=== PATIENT | female | born 1945 | race Caucasian/White ===

== ENCOUNTER 2017-07-17 23:55 | Emergency (ER) | payer OTHER ==
[2017-07-18] MEDS ORDERED: HYDROCODONE/APAP 5/325 MG TAB ONE (00:28)
[2017-07-18 00:53] LABS: Absolute Lymphocytes (CBC) 1.1 K/uL (0.7-4.9); Absolute Monocytes 0.3 K/uL (0.1-1.3); Absolute Neutrophil 3.2 K/uL (1.8-8.0); Basophils % 0.5 % (0-1.3); Eosinophils % 1.1 % (0-4.4); Hematocrit 35.2 % (36.0-45.0); Lymphocytes % 22.9 % (15.3-44.8); MCH 29.2 pg (27.0-35.0); MPV 9.9 fL (7.6-11.3); Monocytes % 7.4 % (3.3-12.3); RBC Red Blood Cell Count 3.95 M/uL (3.86-4.86)
[2017-07-18 01:06] LABS: Potassium 3.2 mEq/L (3.6-5.0)
[2017-07-18] MEDS ORDERED: NA CHLORIDE 0.9% 500 ML ONE (01:29)
[2017-07-18] MEDS ORDERED: AZITHROMYCIN 250 MG TAB ONE (02:59)
[2017-07-18] MEDS ORDERED: cloNIDine HCl 0.1 MG TAB ONE (02:59)
--- NOTE | 2017-07-18 03:21 | EDPHYS ---
Physician Documentation [facility] Name: Sonya Viveros Age: 72 yrs Sex: Female : 1945 Arrival Date: 07/17/2017 Time: 23:56 Bed 7 Private MD: ED Physician Nimesh Hahn HPI: 07/18 00:42 This 72 yrs old Female presents to ER via Ambulatory with complaints of Chest rn Pain, Back Pain. 00:42 The patient presents with pain that is chronic. The symptoms are located in the low rn back. Onset: The symptoms/episode began/occurred 2 week(s) ago. The pain radiates to the chest. Modifying factors: The patient symptoms are alleviated by nothing, the patient symptoms are aggravated by movement. Severity of symptoms: At their worst the symptoms were moderate, in the emergency department the symptoms have improved. The patient has experienced similar episodes in the past. Reports intermittent back and chest pain, seen by her PCP, told to f/u with cardiology as outpt for w/u, pt went out of town so did not, no trauma, reports more back pain over last few days, low back, hurts to move, no fever. Drove herself here. No abd pain/vomiting/diarrhea.. Historical: - Allergies: 00:10 Levofloxacin; bb 00:10 NSAIDS (Non-Steroidal Anti-Inflamma; bb - Home Meds: 00:10 Unable to obtain [Active]; bb - PMHx: 00:10 Hernia; Hypertension; bb - PSHx: 00:10 Hernia repair; leg surgery; bb - Immunization history:: Adult Immunizations up to date. - Social history:: Smoking status: Patient/guardian denies using tobacco. - Family history:: not pertinent. - Hospitalizations: : No recent hospitalization is reported. ROS: 00:42 Constitutional: Negative for fever, chills, and weight loss, Eyes: Negative for injury, rn pain, redness, and discharge, Neck: Negative for injury, pain, and swelling, Cardiovascular: Negative for palpitations, and edema, Respiratory: Negative for shortness of breath, cough, wheezing, and pleuritic chest pain, Abdomen/GI: Negative for abdominal pain, nausea, vomiting, diarrhea, and constipation, Back: Negative for injury MS/Extremity: Negative for injury and deformity, Skin: Negative for injury, rash, and discoloration, Neuro: Negative for headache, weakness, numbness, tingling, and seizure. Exam: 00:42 Constitutional: This is a well developed, well nourished patient who is awake, alert, rn appears anxious and flustered Head/Face: Normocephalic, atraumatic. Eyes: Pupils equal round and reactive to light, extra-ocular motions intact. Lids and lashes normal. Conjunctiva and sclera are non-icteric and not injected. Cornea within normal limits. Periorbital areas with no swelling, redness, or edema. Neck: Trachea midline, no thyromegaly or masses palpated, and no cervical lymphadenopathy. Supple, full range of motion without nuchal rigidity, or vertebral point tenderness. No Meningismus. Cardiovascular: Regular rate and rhythm with a normal S1 and S2. No gallops, murmurs, or rubs. Normal PMI, no JVD. No pulse deficits. Respiratory: Lungs have equal breath sounds bilaterally, clear to auscultation and percussion. No rales, rhonchi or wheezes noted. No increased work of breathing, no retractions or nasal flaring. Abdomen/GI: Soft, non-tender, with normal bowel sounds. No distension or tympany. No guarding or rebound. No evidence of tenderness throughout. Back: No spinal tenderness. No costovertebral tenderness. MS/ Extremity: Pulses equal, no cyanosis. Neurovascular intact. Full, normal range of motion. Equal circumference. Neuro: Awake and alert, GCS 15, oriented to person, place, time, and situation. Cranial nerves II-XII grossly intact. Motor strength 5/5 in all extremities. Sensory grossly intact. Cerebellar exam normal. Vital Signs: 00:10 BP 182 / 109; Pulse 92; Resp 16 S; Temp 97.6(O); Pulse Ox 100% on R/A; Weight 81.65 kg bb (R); Height 5 ft. 7 in. (170.18 cm) (R); Pain 8/10; 01:12 BP 161 / 105; Pulse 84; Resp 16; Pulse Ox 99% on R/A; aa1 02:21 BP 171 / 113; Pulse 82; Resp 18; Pulse Ox 100% on R/A; mg2 03:27 BP 169 / 100; Pulse 79; Resp 18; Pulse Ox 100% on R/A; aa1 00:10 Body Mass Index 28.19 (81.65 kg, 170.18 cm) bb MDM: 00:08 Patient medically screened. rn 03:20 Differential diagnosis: arthritis, chronic back pain, spinal injury, sprain, rn Ureterolithiasis vertebral fracture. Data reviewed: vital signs, nurses notes, lab test result(s), radiologic studies, CT scan, and as a result, I will discharge patient. Counseling: I had a detailed discussion with the patient and/or guardian regarding: the historical points, exam findings, and any diagnostic results supporting the discharge/admit diagnosis, lab results, radiology results, the need for outpatient follow up, to return to the emergency department if symptoms worsen or persist or if there are any questions or concerns that arise at home. Response to treatment: the patient's symptoms have mildly improved after treatment, and as a result, I will discharge patient. Special discussion: I discussed with the patient/guardian in detail that at this point there is no indication for admission to the hospital. It is understood, however, that if the symptoms persist or worsen the patient needs to return immediately for re-evaluation. 07/18 00:24 Order name: CBC with Diff; Complete Time: 01:28 rn 07/18 00:24 Order name: Basic Metabolic Panel; Complete Time: 01:28 rn 07/18 00:24 Order name: Urine Microscopic Only rn 07/18 00:24 Order name: Troponin (emerg Dept Use Only); Complete Time: 01:39 rn 07/18 00:41 Order name: CT Aorta for Dissection 07/18 02:03 Order name: Urine Dipstick--Ancillary (enter results) 07/18 00:24 Order name: IV Start; Complete Time: 00:38 rn 07/18 00:24 Order name: Urine Dipstick-Ancillary (obtain specimen); Complete Time: 02:01 rn 07/18 00:24 Order name: EKG; Complete Time: 00:25 rn 07/18 00:24 Order name: EKG - Nurse/Tech; Complete Time: 00:25 rn Administered Medications: 00:43 Drug: [place] 5 mg-325 mg 1 tabs Route: PO; mg2 03:30 Follow up: Response: No adverse reaction; Pain is decreased aa1 01:32 Drug: NS 0.9% 500 ml Route: IV; Rate: bolus; Site: right hand; mg2 03:29 Follow up: IV Status: Completed infusion aa1 03:04 Drug: cloNIDine 0.2 mg Route: PO; mg2 03:29 Follow up: Response: No adverse reaction; Blood pressure is elevated aa1 03:04 Drug: Zithromax 500 mg Route: PO; mg2 03:29 Follow up: Response: No adverse reaction aa1 Disposition: 07/18/17 03:21 Discharged to Home. Impression: Low back pain, Chest pain, unspecified. - Condition is Stable. - Discharge Instructions: Back Pain, Adult, Nonspecific Chest Pain, Pleurisy. - Prescriptions for Ultram 50 mg Oral Tablet - take 1 tablet by ORAL route every 6 hours As needed; 20 tablet. Zithromax Z- Stanislaw 250 mg Oral Tablet - take 1 tablet by ORAL route as directed for 5 days Day 1 - take two (2) tablets one time. Day 2, 3, 4 , 5 take one (1) tablet once daily.; 6 tablet. - Medication Reconciliation Form, Thank You Letter, Antibiotic Education, Prescription Opioid Use form. - Follow up: Private Physician; When: As needed; Reason: Recheck today's complaints, Re-evaluation by your physician. - Problem is new. - Symptoms have improved. Signatures: Dispatcher [employer] Valeria Esquivel RN RN aa1 Amy Lynch RN RN bb Nimesh Hahn MD MD rn Gardose, Michele, RN RN mg2
--- NOTE | 2017-07-18 03:21 | ER ---
Nurse's Notes [facility] Name: Sonya Viveros Age: 72 yrs Sex: Female : 1945 Arrival Date: 07/17/2017 Time: 23:56 Bed 7 Private MD: Diagnosis: Low back pain;Chest pain, unspecified Presentation: 07/18 00:07 Presenting complaint: Patient states: she is having back pain radiating through her bb chest and she fell against the car x 2 while she was trying to get here tonight, also c/o SOB and nausea. Transition of care: patient was not received from another setting of care. Onset of symptoms is unknown. Initial Sepsis Screen: Does the patient meet any 2 criteria? No. Patient's initial sepsis screen is negative. Does the patient have a suspected source of infection? No. Patient's initial sepsis screen is negative. Care prior to arrival: None. 00:07 Method Of Arrival: Ambulatory bb 00:07 Acuity: RONALDO 2 bb Historical: - Allergies: 00:10 Levofloxacin; bb 00:10 NSAIDS (Non-Steroidal Anti-Inflamma; bb - Home Meds: 00:10 Unable to obtain [Active]; bb - PMHx: 00:10 Hernia; Hypertension; bb - PSHx: 00:10 Hernia repair; leg surgery; bb - Immunization history:: Adult Immunizations up to date. - Social history:: Smoking status: Patient/guardian denies using tobacco. - Family history:: not pertinent. - Hospitalizations: : No recent hospitalization is reported. Screenin:48 Abuse screen: Denies threats or abuse. Denies injuries from another. Nutritional mg2 screening: No deficits noted. Tuberculosis screening: No symptoms or risk factors identified. Fall Risk IV access (20 points). Assessment: 00:45 General: Appears in no apparent distress. Behavior is anxious. Pain: Pain radiates to mg2 shoulder Pain began gradually. Neuro: Level of Consciousness is awake, alert, obeys commands, Oriented to person, place, time, situation. Cardiovascular: Patient's skin is warm and dry. Chest pain is described as Pain is 5 out of 10 on a pain scale. quality is aching is located in posterior began 1 day ago episodes are intermittent. Respiratory: Airway is patent Respiratory effort is even, unlabored, Respiratory pattern is regular. GI: No signs and/or symptoms were reported involving the gastrointestinal system. : No signs and/or symptoms were reported regarding the genitourinary system. EENT: No signs and/or symptoms were reported regarding the EENT system. Derm: No signs and/or symptoms reported regarding the dermatologic system. 01:05 Reassessment: Patient appears in no apparent distress at this time. Patient and/or aa1 family updated on plan of care and expected duration. Pain level reassessed. Patient is alert, oriented x 3, equal unlabored respirations, skin warm/dry/pink. Pt reports [place] has not helped her pain. States, "I don't take hydrocodone because it doesn't work for me. Dr. Collado gives me Tylenol #[address] Graham gives me morphine." notified. 02:25 Reassessment: Patient appears in no apparent distress at this time. Patient and/or mg2 family updated on plan of care and expected duration. Pain level reassessed. Patient is alert, oriented x 3, equal unlabored respirations, skin warm/dry/pink. patient is back from ct. 03:27 Reassessment: Patient appears in no apparent distress at this time. Patient is alert, aa1 oriented x 3, equal unlabored respirations, skin warm/dry/pink. Discussed d/c \\T\\ f/u instructions with pt; denies questions or concerns at this time Patient states feeling better. Vital Signs: 00:10 BP 182 / 109; Pulse 92; Resp 16 S; Temp 97.6(O); Pulse Ox 100% on R/A; Weight 81.65 kg bb (R); Height 5 ft. 7 in. (170.18 cm) (R); Pain 8/10; 01:12 BP 161 / 105; Pulse 84; Resp 16; Pulse Ox 99% on R/A; aa1 02:21 BP 171 / 113; Pulse 82; Resp 18; Pulse Ox 100% on R/A; mg2 03:27 BP 169 / 100; Pulse 79; Resp 18; Pulse Ox 100% on R/A; aa1 00:10 Body Mass Index 28.19 (81.65 kg, 170.18 cm) bb ED Course: 07/17 23:56 Patient arrived in ED. ds1 07/18 00:08 Nimesh Hahn MD is Attending Physician. rn 00:09 Triage completed. bb 00:10 Arm band placed on Patient placed in an exam room, on a stretcher, on potline monitor, bb on pulse oximetry. 00:42 Cooper Rankin, RN is Primary Nurse. mg2 00:44 Inserted saline lock: 22 gauge in right hand, using aseptic technique. mg2 00:47 Radiology exam delayed due to lab results not completed at this time. (BUN/Creatinine). cw1 00:50 Patient has correct armband on for positive identification. Placed in gown. Bed in low mg2 position. Side rails up X2. classroom monitor on. Pulse ox on. NIBP on. Noise minimized. Warm blanket given. 01:08 Radiology exam delayed due to IV insertion attempt and/or patient not having cw1 appropriate IV at this time. 01:32 Inserted saline lock: 22 gauge in left antecubital area, using aseptic technique. aa1 01:40 Straight cath inserted, using sterile technique, 16 Fr. Specimen obtained. Patient bb tolerated well. 02:17 CT Aorta for Dissection In Process Unspecified. EDMS 02:20 Patient moved back from CT. mg2 03:27 No provider procedures requiring assistance completed. IV discontinued, intact, aa1 bleeding controlled, No redness/swelling at site. Pressure dressing applied. Administered Medications: 00:43 Drug: [place] 5 mg-325 mg 1 tabs Route: PO; mg2 03:30 Follow up: Response: No adverse reaction; Pain is decreased aa1 01:32 Drug: NS 0.9% 500 ml Route: IV; Rate: bolus; Site: right hand; mg2 03:29 Follow up: IV Status: Completed infusion aa1 03:04 Drug: cloNIDine 0.2 mg Route: PO; mg2 03:29 Follow up: Response: No adverse reaction; Blood pressure is elevated aa1 03:04 Drug: Zithromax 500 mg Route: PO; mg2 03:29 Follow up: Response: No adverse reaction aa1 Outcome: 03:21 Discharge ordered by . rn 03:29 Discharged to home ambulatory. aa1 03:29 Condition: good 03:29 Discharge instructions given to patient, Instructed on discharge instructions, follow up and referral plans. medication usage, Demonstrated understanding of instructions, follow-up care, medications, Prescriptions given X 2. 03:30 Patient left the ED. aa1 Signatures: Dispatcher [facility] EDND Valeria Landers RN RN aa1 Terri John ds1 Amy Lynch, RN RN bb Nimesh Hahn MD MD rn Woodley, Crystal cw1 Cooper Rankin, SISI RN mg2
[2017-07-18 03:28] LABS: Urine Blood NEGATIVE (NEG); Urine Glucose NEGATIVE (NEG); Urine Protein NEGATIVE (NEG); Urine Specific Gravity 1.015 (1.005-1.030)
[2017-07-18 03:31] LABS: Urine Bacteria <20 /HPF (<20); Urine Culture Reflex Order NOT NEEDED; Urine RBC <5 /HPF (NONE SEEN)
[2017-07-18 03:34] VITALS: TEMP 97.6
[2017-07-18 03:36] VITALS: O2SAT 100
[2017-07-18 03:37] VITALS: BP 169/100
--- NOTE | 2017-07-18 07:15 | EKG ---
Test Date: 2017-07-18 Test Time: 00:09:50 Industrial Maintenance Electrician: ARIAN MEASUREMENT RESULTS: Intervals: Rate: 87 MO: 154 QRSD: 78 QT: 370 QTc: 445 Crane: P: 35 MO: 154 QRS: 11 T: 45 INTERPRETIVE STATEMENTS: Normal sinus rhythm Nonspecific ST abnormality Abnormal ECG Compared to ECG 05/04/2017 12:30:42 ST (T wave) deviation now present Electronically Signed On 07-18-17 07:14:33 CDT by Ismael Singer
--- NOTE | 2017-07-18 08:58 | RAD REPORT ---
EXAM DESCRIPTION: CT - Angio Aorta For Dissection - 07/18/2017 7:02 am CLINICAL HISTORY: Back pain radiating throughout the chest multiple falls triggered by the severity of pain A preliminary written report was provided at the time of the study, and the report was reviewed prio r to final dictation. COMPARISON: Lumbar spine March 2017 TECHNIQUE: Dynamically enhanced 3 mm thick images of the chest, abdomen, and upper pelvis were obtai kevan during administration of approximately 150mL Isovue 370 IV contrast. Sagittal and coronal reconst ruction images were generated and reviewed. Exam utilizes a protocol to evaluate entire course of the aorta. All CT scans are performed using dose optimization technique as appropriate and may include automated exposure control or mA/KV adjustment according to patient size. FINDINGS: Aorta is normal in diameter with no dissection or other acute aortic findings. Mild aortic atherosclerotic calcifications are present without displacement. Reconstruction images show no signi ficant findings. Pulmonary arteries are normal as well. No cardiomegaly, pericardial thickening or pericardial effusio n. No consolidation or mass in the lung parenchyma. Minimal ground-glass opacities are present in the po sterior right lung field. A few sparse airspace opacities are present in the medial right base. These are most likely areas of atelectasis. A minimal amount of alveolitis or bronchiolitis would be possi ble. No pleural thickening, pleural effusion or pneumothorax. No abnormal mediastinal or hilar mass or lymphadenopathy seen. No chest wall mass or abnormal axillar y lymphadenopathy. Celiac, SMA and renal arteries show no suspicious findings. Solid abdominal viscera and bowel show no acute findings. Diffuse fatty infiltration of the liver is noted. Cholecystectomy clips are present with no biliary tree dilatation. No mass or abnormal lymphadenopathy. No free air, free fluid or inf lammatory stranding. No urinary bladder abnormality. Small hiatal hernia is present. Disc and bony degenerative changes are present. The 40% compression fracture of L1 is stable from Mar. IMPRESSION: Negative CT scan of the aorta. Right lung field atelectasis changes are evident. This etiology is favored over alveolitis or bronchi olitis. Diffuse fatty infiltration of the liver. A small hiatal hernia is present. The L1 compression fracture is stable from March 2017. The March lumbar spine report was not avai lable at the time of the preliminary report. .
== END 2017-07-18 03:30 | disposition home or self-care (01) ==
LOC: ER 23:55
DX: R07.9 Chest pain, unspecified (principal); I10 Essential (primary) hypertension; Z88.1 Allergy status to other antibiotic agents; Z88.6 Allergy status to analgesic agent
CPT/HCPCS: 36415; 51702; 71275; 74175; 80048; 84484; 85025; 93005; 96360; 96361; 99285; Q9967; 81003; 81015

== ENCOUNTER 2018-05-04 14:56 | Emergency (ER) | payer OTHER ==
[2011-12-11 12:02] VITALS: BP 84/54
[2018-05-04] MEDS ORDERED: MORPHINE 4 MG/ML SYR ONE (15:43)
[2018-05-04] MEDS ORDERED: ONDANSETRON 4 MG/2 ML VIAL ONE (15:43)
[2018-05-04 15:58] LABS: Absolute Lymphocytes (CBC) 0.8 K/uL (0.7-4.9); Absolute Monocytes 0.3 K/uL (0.1-1.3); Absolute Neutrophil 2.8 K/uL (1.8-8.0); Basophils % 0.6 % (0-1.3); Eosinophils % 1.7 % (0-4.4); Hematocrit 33.4 % (36.0-45.0); Lymphocytes % 19.5 % (15.3-44.8); MPV 10.5 fL (7.6-11.3); Protime INR 1.04; RBC Red Blood Cell Count 3.57 M/uL (3.86-4.86)
[2018-05-04 16:19] LABS: ALT/SGPT 47 U/L (12-78); AST/SGOT 41 U/L (15-37); Albumin 3.5 g/dL (3.4-5.0); Alkaline Phosphatase 96 U/L (45-117); BUN Blood Urea Nitrogen 12 mg/dL (7-18); Bicarbonate 27 mmol/L (21-32); Bilirubin Direct 0.2 mg/dL (0-0.2); Bilirubin Total 0.6 mg/dL (0.2-1.0); Glucose Level 89 mg/dL (74-106); Magnesium 1.9 mg/dL (1.8-2.4); NT PRO-BNP 316 pg/mL (<125); Potassium 3.6 mmol/L (3.5-5.1); Sodium Level 141 mmol/L (136-145); Troponin (Emerg Dept Use Only) < 0.02 ng/mL (0.0-0.045)
--- NOTE | 2018-05-04 16:21 | RAD REPORT ---
EXAM DESCRIPTION: CT - Head Brain Wo Cont - 05/04/2018 3:49 pm CLINICAL HISTORY: Dizziness COMPARISON: March 2017 TECHNIQUE: Computed axial tomography of the head was obtained. IV contrast was not requested. All CT scans are performed using dose optimization technique as appropriate and may include automated exposure control or mA/KV adjustment according to patient size. FINDINGS: An intracranial bleed is not seen . The ventricles are normal in caliber. No extra-axial fluid collection is noted. Fluid is present within the sphenoid sinus. IMPRESSION: No acute intracranial abnormality is seen. If patient's symptoms persist MRI of the bra in would be recommended. Fluid within the sphenoid sinus may indicate acute sinusitis
--- NOTE | 2018-05-04 16:55 | EKG ---
Test Date: 2018-05-04 Test Time: 15:06:19 Ice Plant Operator: JACOB MEASUREMENT RESULTS: Intervals: Rate: 64 PA: 146 QRSD: 86 QT: 392 QTc: 404 [place]: P: 24 PA: 146 QRS: 1 T: 28 INTERPRETIVE STATEMENTS: Normal sinus rhythm Moderate voltage criteria for LVH, may be normal variant Borderline ECG Compared to ECG 07/18/2017 00:09:50 Left ventricular hypertrophy now present ST (T wave) deviation no longer present Electronically Signed On 05-04-18 16:54:39 [employer] by Ismael Singer
[2018-05-04] MEDS ORDERED: DIAZEPAM 2 MG TABLET ONE (17:15)
--- NOTE | 2018-05-04 17:37 | RAD REPORT ---
EXAM DESCRIPTION: Nasir Single View05/04/2018 3:59 pm CLINICAL HISTORY: Chest pain COMPARISON: 2012 FINDINGS: The lungs appear clear of acute infiltrate. The heart is normal size IMPRESSION: No acute abnormalities displayed
--- NOTE | 2018-05-04 17:48 | ER ---
Nurse's Notes [facility] Name: Sonya Viveros Age: 73 yrs Sex: Female : 1945 Arrival Date: 05/04/2018 Time: 15:02 Bed 3 Private MD: Diagnosis: Low back pain;Acute stress reaction;Essential (primary) hypertension;Acute sinusitis;Urinary tract infection, site not specified Presentation: 05/04 15:17 Presenting complaint: EMS states: Was at Dr Langston's office for a routine visit, BP was ph elevated at 200/100, pt c/o, dizziness, blurred vision, and chronic back pain. Transition of care: patient was not received from another setting of care. Onset of symptoms was May 04, 2018. Risk Assessment: Do you want to hurt yourself or someone else? Patient reports no desire to harm self or others. Initial Sepsis Screen: Does the patient meet any 2 criteria? No. Patient's initial sepsis screen is negative. Does the patient have a suspected source of infection? No. Patient's initial sepsis screen is negative. Care prior to arrival: None. 15:17 Method Of Arrival: EMS: [facility] ph 15:17 Acuity: RONALDO 3 ph Historical: - Allergies: 15:24 Levofloxacin; ph 15:24 NSAIDS (Non-Steroidal Anti-Inflamma; ph - PMHx: 15:24 Hernia; Hypertension; Anxiety; ph - PSHx: 15:24 Hernia repair; leg surgery; ph - Immunization history:: Adult Immunizations unknown. - Social history:: Smoking status: Patient/guardian denies using tobacco. - Ebola Screening: : No symptoms or risks identified at this time. Screenin:50 Abuse screen: Denies threats or abuse. Denies injuries from another. Nutritional ph screening: No deficits noted. Tuberculosis screening: No symptoms or risk factors identified. Fall Risk None identified. Assessment: 15:25 General: Appears in no apparent distress. uncomfortable, slender, well groomed, ph Behavior is cooperative, appropriate for age, anxious. Pain: Complains of pain in low back area Pain radiates to right leg. Neuro: Level of Consciousness is awake, alert, obeys commands, Oriented to person, place, time, situation, Reports blurred vision dizziness. Cardiovascular: Reports chest pain, lightheadedness, Capillary refill < 3 seconds in bilateral Patient's skin is warm and dry. Chest pain is described as mild, is located in left anterior chest wall. Respiratory: Airway is patent Respiratory effort is even, unlabored, Respiratory pattern is regular, symmetrical. GI: No signs and/or symptoms were reported involving the gastrointestinal system. Derm: Skin is intact, is healthy with good turgor, Skin is pink, warm \T\ dry. Musculoskeletal: Circulation, motion, and sensation intact. Range of motion: intact in all extremities. 17:00 Reassessment: Patient appears in no apparent distress at this time. Patient and/or ph family updated on plan of care and expected duration. Pain level reassessed. Patient is alert, oriented x 3, equal unlabored respirations, skin warm/dry/pink. 18:29 Reassessment: Patient appears in no apparent distress at this time. Patient and/or ph family updated on plan of care and expected duration. Pain level reassessed. Patient is alert, oriented x 3, equal unlabored respirations, skin warm/dry/pink. Pt reports that pain and anxiety have improved, BP also decreased to 163/84, SO at bedside, awaiting d/c. Vital Signs: 15:22 BP 193 / 90; Pulse 64; Resp 18; Temp 97.8; Pulse Ox 100% on R/A; ph 16:30 BP 180 / 92; Pulse 60; Resp 16; Pulse Ox 99% on R/A; ph 17:51 BP 178 / 91; Pulse 61; Resp 18; Pulse Ox 99% on R/A; Pain 3/10; ph 18:28 BP 163 / 84; Pulse 61; Resp 18; Temp 97.8; Pulse Ox 99% on R/A; Pain 3/10; ph ED Course: 15:02 Patient arrived in ED. ss 15:04 Ramón Fuentes NP is PHCP. pm1 15:04 Jose Manuel Croft MD is Attending Physician. pm1 15:13 EKG done, by residential service technician. reviewed by Ramón Fuentes NP. at1 15:17 Sonia Dee, SISI is Primary Nurse. ph 15:22 Triage completed. ph 15:25 Arm band placed on. ph 15:30 Inserted saline lock: 22 gauge in right antecubital area, using aseptic technique. ph Blood collected. 15:49 CT completed. Patient tolerated procedure well. Patient moved to CT. Patient moved back nj from CT. 15:49 CT Head Brain wo Cont In Process Unspecified. EDMS 15:56 XRAY Chest (1 view) In Process Unspecified. EDMS 17:50 No provider procedures requiring assistance completed. ph 17:50 Patient has correct armband on for positive identification. Bed in low position. Call ph light in reach. Side rails up X 1. Pulse ox on. NIBP on. Door closed. Noise minimized. Lights dimmed. Warm blanket given. Pillow given. Verbal reassurance given. 18:31 IV discontinued, intact, bleeding controlled, No redness/swelling at site. Pressure ph dressing applied. Administered Medications: 16:13 Drug: Zofran 4 mg Route: IVP; Site: right antecubital; ph 17:49 Follow up: Response: No adverse reaction ph 16:31 Drug: morphine 4 mg Route: IVP; Site: right antecubital; ph 17:48 Follow up: Response: No adverse reaction; Pain is decreased ph 17:15 Drug: Valium 2 mg Route: PO; ph 17:49 Follow up: Response: No adverse reaction; Anxiety decreased ph 18:27 Drug: Rocephin 1 grams Route: IV; Rate: calculated rate; Site: right antecubital; ph 18:28 Follow up: Response: No adverse reaction; IV Status: Completed infusion ph Outcome: 17:48 Discharge ordered by MD. pm1 19:08 Discharged to home ambulatory, with significant other. ph 19:08 Condition: improved 19:08 Discharge instructions given to patient, significant other, Instructed on discharge instructions, follow up and referral plans. medication usage, Demonstrated understanding of instructions, follow-up care, medications, Prescriptions given X 2. 19:08 Patient left the ED. ph Addendum: 05/08/2018 09:36 Addendum: Culture Results: Positive urine culture. No further action required. Bacteria s s sensitive to prescribed antibiotic. Signatures: Dispatcher [employer] EDMS Malena Fuentes RN RN ss Selene Santos, medical registrar EKG Tat1 Sonia Dee RN RN ph Ramón Fuentes, PASTER OPERATOR PASTER OPERATOR pm1 Desmond Dee
--- NOTE | 2018-05-04 17:48 | EDPHYS ---
Physician Documentation [facility] Name: Sonya Viveros Age: 73 yrs Sex: Female : 1945 Arrival Date: 05/04/2018 Time: 15:02 Bed 3 Private MD: ED Physician Jose Manuel Croft HPI: 05/04 16:00 This 73 yrs old Female presents to ER via EMS with complaints of Low back pm1 pain, Dizziness, Blurred Vision. 16:00 The patient presents with dizziness, low back pain and blurred vision. Onset: The pm1 symptoms/episode began/occurred today. Context: occurred Doctor's office, occurred while the patient was Feeling anxious and crying. just prior to the episode the patient experienced no apparent symptoms. Associated signs and symptoms: Pertinent negatives: abdominal pain, chest pain, diaphoresis, headache, near-syncope, numbness, shortness of breath. Severity of symptoms: in the emergency department the symptoms have improved. Patient's baseline: Neuro: alert and fully oriented, Motor: no deficits, Ambulation: walks without assistance, Speech: normal, The patient has a previous history of Anxiety. The patient has experienced similar episodes in the past, multiple times. The patient has been recently seen by a physician: Was in the waiting room of Dr. Langston for office visit to start medication for Hepatitis C. Patient felt overwhelmed about her daughter having twins and started crying. [place] overwhelmed about her chronic low back pain. Patient started hyperventilating started to feel dizzy with blurred vision. Patient with history of anxiety but has not taken her medication clonazepam for anxiety in a long time. Office checked that patient's pressure and it was elevated. Called EMS for ER evaluation . 16:00 Patient has not taken hypertension medications for 3 years. pm1 Historical: - Allergies: 15:24 Levofloxacin; ph 15:24 NSAIDS (Non-Steroidal Anti-Inflamma; ph - PMHx: 15:24 Hernia; Hypertension; Anxiety; ph - PSHx: 15:24 Hernia repair; leg surgery; ph - Immunization history:: Adult Immunizations unknown. - Social history:: Smoking status: Patient/guardian denies using tobacco. - Ebola Screening: : No symptoms or risks identified at this time. ROS: 16:00 Constitutional: Negative for fever, chills, and weight loss, Eyes: Negative for injury, pm1 pain, redness, and discharge, ENT: Negative for injury, pain, and discharge, Neck: Negative for injury, pain, and swelling, Cardiovascular: Negative for chest pain, palpitations, and edema, Respiratory: Negative for shortness of breath, cough, wheezing, and pleuritic chest pain, Abdomen/GI: Negative for abdominal pain, nausea, vomiting, diarrhea, and constipation, : Negative for injury, bleeding, discharge, and swelling, MS/Extremity: Negative for injury and deformity. 16:00 Skin: Negative for injury, rash, and discoloration. pm1 16:00 Neuro: Positive for dizziness, blurred vision. 16:00 Psych: Positive for anxiety, Negative for depression, auditory hallucinations, visual hallucinations, homicidal ideation, suicide gesture, suicidal ideation. 16:00 Back: Positive for of the low back area, pain. pm1 Exam: 16:00 Constitutional: This is a well developed, well nourished patient who is awake, alert, pm1 and in no acute distress. Head/Face: Normocephalic, atraumatic. Eyes: Pupils equal round and reactive to light, extra-ocular motions intact. Lids and lashes normal. Conjunctiva and sclera are non-icteric and not injected. Cornea within normal limits. Periorbital areas with no swelling, redness, or edema. ENT: Nares patent. No nasal discharge, no septal abnormalities noted. Tympanic membranes are normal and external auditory canals are clear. Oropharynx with no redness, swelling, or masses, exudates, or evidence of obstruction, uvula midline. Mucous membranes moist. Neck: Trachea midline, no thyromegaly or masses palpated, and no cervical lymphadenopathy. Supple, full range of motion without nuchal rigidity, or vertebral point tenderness. No Meningismus. Chest/axilla: Normal chest wall appearance and motion. Nontender with no deformity. No lesions are appreciated. Cardiovascular: Regular rate and rhythm with a normal S1 and S2. No gallops, murmurs, or rubs. Normal PMI, no JVD. No pulse deficits. Respiratory: Lungs have equal breath sounds bilaterally, clear to auscultation and percussion. No rales, rhonchi or wheezes noted. No increased work of breathing, no retractions or nasal flaring. Abdomen/GI: Soft, non-tender, with normal bowel sounds. No distension or tympany. No guarding or rebound. No evidence of tenderness throughout. 16:00 Skin: Warm, dry with normal turgor. Normal color with no rashes, no lesions, and no evidence of cellulitis. MS/ Extremity: Pulses equal, no cyanosis. Neurovascular intact. Full, normal range of motion. 16:00 Back: kyphosis, that is moderate, vertebral tenderness, is not appreciated, muscle spasm, is appreciated in the left low back and right low back. 16:00 Neuro: Orientation: is normal, Mentation: is normal, Cranial nerves: CN II- XII are pm1 normal as tested, Cerebellar function: normal finger to nose testing, Motor: is normal, moves all fours, strength is normal, strength is 5/5 in all extremities, Sensation: is normal, no obvious gross deficits. Vital Signs: 15:22 BP 193 / 90; Pulse 64; Resp 18; Temp 97.8; Pulse Ox 100% on R/A; ph 16:30 BP 180 / 92; Pulse 60; Resp 16; Pulse Ox 99% on R/A; ph 17:51 BP 178 / 91; Pulse 61; Resp 18; Pulse Ox 99% on R/A; Pain 3/10; ph 18:28 BP 163 / 84; Pulse 61; Resp 18; Temp 97.8; Pulse Ox 99% on R/A; Pain 3/10; ph MDM: 15:15 Patient medically screened. pm1 17:45 Data reviewed: vital signs. Data interpreted: Pulse oximetry: on room air is 100 %. pm1 Interpretation: normal. Counseling: I had a detailed discussion with the patient and/or guardian regarding: the historical points, exam findings, and any diagnostic results supporting the discharge/admit diagnosis, lab results, radiology results, the need for outpatient follow up, for definitive care, a family practitioner, hypertension management, to return to the emergency department if symptoms worsen or persist or if there are any questions or concerns that arise at home. 05/04 15:26 Order name: Basic Metabolic Panel; Complete Time: 16:27 pm1 05/04 15:26 Order name: CBC with Diff; Complete Time: 16:27 pm1 05/04 15:26 Order name: LFT's; Complete Time: 16:27 pm1 05/04 15:26 Order name: Magnesium; Complete Time: 16:27 pm1 05/04 15:26 Order name: NT PRO-BNP; Complete Time: 16:27 pm1 05/04 15:26 Order name: PT-INR; Complete Time: 16:27 pm1 05/04 15:26 Order name: Troponin (emerg Dept Use Only); Complete Time: 16:27 pm1 05/04 15:26 Order name: XRAY Chest (1 view); Complete Time: 17:44 pm1 05/04 15:26 Order name: Urine Microscopic Only; Complete Time: 18:26 pm1 05/04 15:26 Order name: CT Head Brain wo Cont; Complete Time: 16:27 pm1 05/04 18:15 Order name: Urine Dipstick--Ancillary (enter results); Complete Time: 18:35 em1 05/04 18:25 Order name: Urine Culture EDHI 05/04 15:26 Order name: EKG; Complete Time: 15:26 pm1 05/04 15:26 Order name: Cardiac monitoring; Complete Time: 17:47 pm1 05/04 15:26 Order name: EKG - Nurse/Tech; Complete Time: 17:47 pm1 05/04 15:26 Order name: IV Saline Lock; Complete Time: 17:47 pm1 05/04 15:26 Order name: Labs collected and sent; Complete Time: 17:47 pm1 05/04 15:26 Order name: O2 Per Protocol; Complete Time: 17:47 pm1 05/04 15:26 Order name: O2 Sat Monitoring; Complete Time: 17:47 pm1 05/04 15:26 Order name: Urine Dipstick-Ancillary (obtain specimen); Complete Time: 17:47 pm1 Administered Medications: 16:13 Drug: Zofran 4 mg Route: IVP; Site: right antecubital; ph 17:49 Follow up: Response: No adverse reaction ph 16:31 Drug: morphine 4 mg Route: IVP; Site: right antecubital; ph 17:48 Follow up: Response: No adverse reaction; Pain is decreased ph 17:15 Drug: Valium 2 mg Route: PO; ph 17:49 Follow up: Response: No adverse reaction; Anxiety decreased ph 18:27 Drug: Rocephin 1 grams Route: IV; Rate: calculated rate; Site: right antecubital; ph 18:28 Follow up: Response: No adverse reaction; IV Status: Completed infusion ph Disposition: 05/05 07:04 Co-signature as Attending Physician, Jose Manuel Croft MD I agree with the assessment and kdr plan of care. Disposition: 05/04/18 17:48 Discharged to Home. Impression: Essential (primary) hypertension, Low back pain, Acute stress reaction, Acute sinusitis, Urinary tract infection, site not specified. - Condition is Stable. - Discharge Instructions: Back Pain, Adult, Hypertension, Sinusitis, Adult, Urinary Tract Infection, Adult, Stress and Stress Management, How to Take Your Blood Pressure, [id number], DASH Eating Plan, Managing Your Hypertension. - Prescriptions for Augmentin 875- 125 mg Oral Tablet - take 1 tablet by ORAL route every 12 hours for 10 days; 20 tablet. Valium 2 mg Oral Tablet - take 1 tablet by ORAL route every 8 hours As needed; 10 tablet. - Medication Reconciliation Form, Thank You Letter form. - Follow up: Emergency Department; When: As needed; Reason: Worsening of condition. Follow up: Private Physician; When: 2 - 3 days; Reason: Recheck today's complaints, Continuance of care, Re-evaluation by your physician. - Problem is new. - Symptoms have improved. Signatures: Dispatcher [employer] EDMS Jose Manuel Croft MD MD [facility] Sonia Dee RN RN ph Ramón Fuentes, ИВАН ZONING ADMINISTRATOR pm1 Corrections: (The following items were deleted from the chart) 05/04 18:06 17:48 05/04/2018 17:48 Discharged to Home. Impression: Essential (primary) pm1 hypertensionLow back pain; Acute stress reaction. Condition is Stable. Forms are Medication Reconciliation Form, Thank You Letter, Antibiotic Education, Prescription Opioid Use. Follow up: Emergency Department; When: As needed; Reason: Worsening of condition. Follow up: Private Physician; When: 2 - 3 days; Reason: Recheck today's complaints, Continuance of care, Re-evaluation by your physician. Problem is new. Symptoms have improved. pm1 18:35 18:06 05/04/2018 17:48 Discharged to Home. Impression: Essential (primary) pm1 hypertensionLow back pain; Acute stress reaction; Acute sinusitis. Condition is Stable. Discharge Instructions: Back Pain, Adult, Hypertension, Stress and Stress Management, How to Take Your Blood Pressure, [id number], DASH Eating Plan, Managing Your Hypertension. Forms are Medication Reconciliation Form, Thank You Letter. Follow up: Emergency Department; When: As needed; Reason: Worsening of condition. Follow up: Private Physician; When: 2 - 3 days; Reason: Recheck today's complaints, Continuance of care, Re-evaluation by your physician. Problem is new. Symptoms have improved. pm1 19:08 18:35 05/04/2018 17:48 Discharged to Home. Impression: Essential (primary) ph hypertensionLow back pain; Acute stress reaction; Acute sinusitis; Urinary tract infection, site not specified. Condition is Stable. Discharge Instructions: Back Pain, Adult, Hypertension, Stress and Stress Management, How to Take Your Blood Pressure, [id number], DASH Eating Plan, Managing Your Hypertension, Sinusitis, Adult, Urinary Tract Infection, Adult. Prescriptions for Augmentin 875-125 mg Oral Tablet - take 1 tablet by ORAL route every 12 hours for 10 days; 20 tablet, Valium 2 mg Oral Tablet - take 1 tablet by ORAL route every 8 hours As needed; 10 tablet. and Forms are Medication Reconciliation Form, Thank You Letter. Follow up: Emergency Department; When: As needed; Reason: Worsening of condition. Follow up: Private Physician; When: 2 - 3 days; Reason: Recheck today's complaints, Continuance of care, Re-evaluation by your physician. Problem is new. Symptoms have improved. pm1 05/05 01:44 05/04 16:00 The patient has been recently seen by a physician: Was in the waiting room pm1 of Dr. Langston for office visit to start medication for Hepatitis C. Patient felt overwhelmed about her daughter having twins and started crying. Patient started hyperventilating started to feel dizzy with blurred vision. Patient with history of anxiety but has not taken her medication clonazepam for anxiety in a long time. Office checked that patient's pressure and it was elevated. Called EMs for ER evaluation , pm1 05/05 01:44 05/04 16:00 Constitutional: Negative for fever, chills, and weight loss, Eyes: Negative pm1 for injury, pain, redness, and discharge, ENT: Negative for injury, pain, and discharge, Neck: Negative for injury, pain, and swelling, Cardiovascular: Negative for chest pain, palpitations, and edema, Respiratory: Negative for shortness of breath, cough, wheezing, and pleuritic chest pain, Abdomen/GI: Negative for abdominal pain, nausea, vomiting, diarrhea, and constipation, Back: Negative for injury and pain, : Negative for injury, bleeding, discharge, and swelling, MS/Extremity: Negative for injury and deformity, pm1
[2018-05-04 18:23] LABS: Urine Bacteria >50 /HPF (<20); Urine Culture Reflex Order REFLEXED
[2018-05-04 18:27] LABS: Urine Blood 1+ (NEG); Urine Glucose NEGATIVE (NEG); Urine Protein NEGATIVE (NEG)
[2018-05-04] MEDS ORDERED: CEFTRIAXONE/SWI 1gm 1 GM/10 ML SYR ONE (18:29)
== END 2018-05-04 19:08 | disposition home or self-care (01) ==
LOC: ER 14:56
DX: F43.0 Acute stress reaction (principal); I10 Essential (primary) hypertension; N39.0 Urinary tract infection, site not specified; J01.90 Acute sinusitis, unspecified; M54.5 Low back pain; Z88.6 Allergy status to analgesic agent; Z88.8 Allergy status to other drugs, medicaments and biological substances
CPT/HCPCS: 36415; 70450; 71045; 80048; 80076; 83735; 83880; 84484; 85025; 85610; 87077; 87086; 87088; 87186; 93005; 96374; 96375; 99285; J0696; J2405; 81003; 81015

== ENCOUNTER 2018-07-13 10:42 | Emergency (ER) | payer OTHER ==
[2018-07-13] MEDS ORDERED: ONDANSETRON 4 MG/2 ML VIAL ONE (11:33)
[2018-07-13] MEDS ORDERED: MORPHINE 4 MG/ML SYR ONE (11:33)
--- NOTE | 2018-07-13 12:02 | RAD REPORT ---
EXAM DESCRIPTION: CT - [id number] - 07/13/2018 11:40 am CLINICAL HISTORY: Trauma, head and neck injury. fall, head injury;Pain COMPARISON: Head C Spine Mpr Wo Con dated 04/20/2017; Head C Spine Mpr Wo Con dated 03/27/2017 TECHNIQUE: Axial 5 mm thick images of the head were obtained. Axial 2 mm thick images of the cervical spine were obtained with sagittal and coronal reconstruction images generated and reviewed. All CT scans are performed using dose optimization technique as appropriate and may include automated exposure control or mA/KV adjustment according to patient size. FINDINGS: CT HEAD WITHOUT CONTRAST: No acute hemorrhage, hydrocephalus or extra-axial collection is identified. Mild generalized brain at rophy is present with mild periventricular and deep white matter chronic microvascular ischemic [place] es. No areas of brain edema or midline shift. The paranasal sinuses and mastoids are clear.The calvarium is intact. CT CERVICAL SPINE WITHOUT CONTRAST: No fracture or subluxation.Mild lower cervical degenerative changes are present.No prevertebral soft tissues swelling is identified. Odontoid is normal lateral masses are symmetric. IMPRESSION: No acute intracranial or cervical spine findings. Mild lower cervical degenerative changes.
--- NOTE | 2018-07-13 12:13 | RAD REPORT ---
EXAM DESCRIPTION: RAD - Shoulder Right 2 View - 07/13/2018 12:06 pm CLINICAL HISTORY: PAIN Fall, right shoulder pain COMPARISON: Shoulder Right 2 View dated 04/20/2017 FINDINGS: Mild AC joint and glenohumeral joint arthritic changes are present. No fracture or disloca tion seen.
--- NOTE | 2018-07-13 12:49 | RAD REPORT ---
EXAM DESCRIPTION: RAD - Humerus Right - 07/13/2018 12:19 pm CLINICAL HISTORY: Right arm pain status post fall FINDINGS: The bones are osteoporotic. A horizontal lucency is present within the lateral humeral epi condyle suspicious for a nondisplaced fracture.
--- NOTE | 2018-07-13 12:50 | RAD REPORT ---
EXAM DESCRIPTION: RAD - Knee Right 3 View - 07/13/2018 12:19 pm CLINICAL HISTORY: Right knee pain status post injury FINDINGS: No fracture or dislocation is seen. The bones are osteoporotic
--- NOTE | 2018-07-13 13:30 | ER ---
Nurse's Notes [facility] Name: Sonya Viveros Age: 73 yrs Sex: Female : 1945 Arrival Date: 07/13/2018 Time: 10:47 Bed 24 Private MD: Diagnosis: Other slipping, tripping and stumbling and falls;Nondisplaced fracture (avulsion) of lateral epicondyle of right humerus Presentation: 07/13 10:50 Presenting complaint: Patient states: Tripped and fell from a standing position while ss shopping. C/o R shoulder, R wrist, low back and bilateral hip pain. Denies LOC. Care prior to arrival: Cervical collar in place. Placed on backboard. Mechanism of Injury: Fall from standing position. Trauma event details: Injury occurred in the [facility], Injury occurred: in a public building. Injury occurred: July 13, 2018. 10:50 Acuity: RONALDO 3 ss 10:50 Method Of Arrival: EMS: [facility] ss 10:50 Transition of care: patient was not received from another setting of care. Onset of ss symptoms was July 13, 2018. Risk Assessment: Do you want to hurt yourself or someone else? Patient reports no desire to harm self or others. Initial Sepsis Screen: Does the patient meet any 2 criteria? No. Patient's initial sepsis screen is negative. Does the patient have a suspected source of infection? No. Patient's initial sepsis screen is negative. Trauma Activation: Stat Physician: ED Physician; Name: ; Notified At: ; Arrived At: Physician: General Surgeon; Name: ; Notified At: ; Arrived At: Physician: Radiology; Name: ; Notified At: ; Arrived At: Physician: Respiratory; Name: ; Notified At: ; Arrived At: Physician: Lab; Name: ; Notified At: ; Arrived At: Historical: - Allergies: 11:10 Levofloxacin; ss 11:10 NSAIDS (Non-Steroidal Anti-Inflamma; ss - PMHx: 11:10 Anxiety; Hernia; Hypertension; Hepatitis; ss - PSHx: 11:10 Hernia repair; leg surgery; ss - Immunization history: Last tetanus immunization: - up to date. - Social history:: Smoking status: Patient/guardian denies using tobacco. - Ebola Screening: : Patient denies exposure to infectious person Patient denies travel to an Ebola-affected area in the 21 days before illness onset. Screenin:59 Abuse screen: Denies threats or abuse. Denies injuries from another. Tuberculosis ss screening: Never had TB. 10:59 Nutritional screening: No deficits noted. Fall Risk Fall in past 12 months (25 points). ss No secondary diagnosis (0 pts). IV access (20 points). Ambulatory Aid- None/Bed Rest/Nurse Assist (0 pts). Gait- Normal/Bed Rest/Wheelchair (0 pts) Mental Status- Oriented to own ability (0 pts). Primary Survey: 10:50 NO uncontrolled hemorrhage observed. Breathing/Chest: Respiratory pattern: regular, ss Respiratory effort: spontaneous, unlabored, Breath sounds: clear, bilaterally. Chest inspection: symmetrical rise and fall of the chest. Circulation: Cardiac rhythm: sinus rhythm Heart tones present. Pulses: palpable right radial artery, right posterior tibial artery, left radial artery and left posterior tibial artery. Skin color: pink, Skin temperature: warm. Disability Alert. Exposure/Environment: There is no evidence of uncontrolled external bleeding. No obvious injuries are noted at this time. Assessment: 10:50 General: Appears uncomfortable, Behavior is cooperative, anxious, Denies fever, feeling ss ill, fatigue, chills. Pain: Complains of pain in R shoulder, R wrist, low back and bilateral hip pain Pain currently is 10 out of 10 on a pain scale. Quality of pain is described as throbbing. Pain: Is continuous. Neuro: Level of Consciousness is awake, alert, obeys commands, Oriented to person, place, time, situation. EENT: Nares are clear Oral mucosa is moist. Throat is clear. Cardiovascular: Capillary refill < 3 seconds is brisk in bilateral. Respiratory: Airway is patent Respiratory effort is even, unlabored, Respiratory pattern is regular, symmetrical, Denies cough, shortness of breath pain with respiration, pain with cough, pain with movement. GI: Reports nausea, Patient currently denies diarrhea, vomiting. : No signs and/or symptoms were reported regarding the genitourinary system. Derm: Skin is intact, is healthy with good turgor, Skin is dry, Skin is pink, warm \T\ dry. normal. Musculoskeletal: Circulation, motion, and sensation intact. Range of motion: limited in right shoulder Swelling absent. 11:29 Reassessment: Pt to CT at this time VIA stretcher. ss 12:04 Reassessment: patient still in XRAY/ CT having images obtained. ss 12:19 Reassessment: Patient appears in no apparent distress at this time. Patient and/or ss family updated on plan of care and expected duration. Pain level reassessed. Patient is alert, oriented x 3, equal unlabored respirations, skin warm/dry/pink. ROM intact in all. Patient reports that pain medication helped tremendously. Family at bedside. ASsisted patient on onto bed moore. CT back, is negative for acute findings. OK per JEANA Walden to take of C collar. Pt is grateful for care received. Call light remains within reach Patient states feeling better. Patient states symptoms have improved. 12:33 Reassessment: assisted patient to bedside commode. Vital Signs: 10:59 BP 192 / 115; Pulse 74; Resp 20; Temp 97.7(O); Pulse Ox 99% on R/A; Weight 75.75 kg; ss Height 5 ft. 7 in. (170.18 cm); Pain 10/10; 12:17 BP 180 / 88; Pulse 73; Resp 16; Pulse Ox 100% on R/A; Pain 6/10; ss 10:59 Body Mass Index 26.16 (75.75 kg, 170.18 cm) ss [place] Coma Score: 10:59 Eye Response: spontaneous(4). Verbal Response: oriented(5). Motor Response: obeys commands(6). Total: 15. Trauma Score (Adult): 10:59 Eye Response: spontaneous(1); Verbal Response: oriented(1); Motor Response: obeys commands(2); Systolic BP: > 89 mm Hg(4); Respiratory Rate: 10 to 29 per min(4); [place] Score: 15; Trauma Score: 12 ED Course: 10:47 Patient arrived in ED. ss 10:52 Jose Manuel Croft MD is Attending Physician. kdr 10:59 Patient has correct armband on for positive identification. Bed in low position. Call ss light in reach. Patient maintains SpO2 saturation greater than 95% on room air. Pulse ox on. NIBP on. 10:59 Patient maintains SpO2 saturation greater than 95% on room air. Thermoregulation: warm ss blanket given to patient. 11:02 Triage completed. ss 11:12 Malena Fuentes, RN is Primary Nurse. ss 11:25 Inserted saline lock: 22 gauge in left antecubital area, using aseptic technique. ss 11:34 CT completed. Patient tolerated procedure well. Patient moved to CT via stretcher. ls3 Patient moved to radiology Patient moved back from CT. 11:40 CT Head C Spine In Process Unspecified. EDMS 12:07 Shoulder Right (2 View) XRAY In Process Unspecified. EDMS 12:19 Knee Right 3 View XRAY In Process Unspecified. EDMS 12:20 Humerus Right XRAY In Process Unspecified. EDMS 13:58 No provider procedures requiring assistance completed. IV discontinued, intact, ss bleeding controlled, No redness/swelling at site. Pressure dressing applied. Administered Medications: 11:26 Drug: Zofran 4 mg Route: IVP; Site: left antecubital; ss 12:32 Follow up: Response: No adverse reaction; Nausea is decreased ss 11:28 Drug: morphine 2 mg Route: IVP; Site: left antecubital; ss 12:32 Follow up: Response: No adverse reaction ss 13:50 Drug: morphine 2 mg Route: IVP; Site: left antecubital; ss 13:58 Follow up: Response: No adverse reaction; Pain is decreased ss 13:56 Not Given (Other Intervention Used): morphine 4 mg IVP once ss 13:57 Not Given (Physician Discretion; patient refused norco): [place] 10 mg-325 mg 1 tabs PO ss once Intake: 13:59 PO: 50ml (Water); Total: 50ml. ss Output: 13:59 Urine: 300ml (Voided); Total: 300ml. ss Outcome: 13:29 Discharge ordered by . kdr 13:58 Discharged to home ambulatory. ss 13:58 Condition: good 13:58 Discharge instructions given to patient, family, Instructed on discharge instructions, follow up and referral plans. medication usage, Demonstrated understanding of instructions, follow-up care, medications. 13:59 Patient's length of stay in the Emergency Department was greater than 2 hours. ss SURGEPatient's length of stay extended due to 14:00 Patient left the ED. ss Signatures: Dispatcher [employer] EDAL Jose Manuel Croft MD MD [facility] Malena Fuentes, SISI RN Jose Manuel Muñiz ls3
--- NOTE | 2018-07-13 13:30 | EDPHYS ---
Physician Documentation [facility] Name: Sonya Viveros Age: 73 yrs Sex: Female : 1945 Arrival Date: 07/13/2018 Time: 10:47 Bed 24 Private MD: ED Physician Jose Manuel Croft HPI: 07/13 11:09 This 73 yrs old Female presents to ER via EMS with complaints of Fall Injury, kdr Shoulder Pain. 11:09 Details of fall: The patient fell from an upright position, while walking. Onset: The kdr symptoms/episode began/occurred acutely, suddenly, just prior to arrival. Associated injuries: The patient sustained Right shoulder and knee pain. She does not know if she hit her head or blacked out. Severity of symptoms: At their worst the symptoms were mild, in the emergency department the symptoms are unchanged. The patient has not experienced similar symptoms in the past. The patient has not recently seen a physician. States she slipped in the store and was unable to get up off the floor. Presents on back board and c-collar. Historical: - Allergies: 11:10 Levofloxacin; ss 11:10 NSAIDS (Non-Steroidal Anti-Inflamma; ss - PMHx: 11:10 Anxiety; Hernia; Hypertension; Hepatitis; ss - PSHx: 11:10 Hernia repair; leg surgery; ss - Immunization history: Last tetanus immunization: - up to date. - Social history:: Smoking status: Patient/guardian denies using tobacco. - Ebola Screening: : Patient denies exposure to infectious person Patient denies travel to an Ebola-affected area in the 21 days before illness onset. ROS: 11:09 Constitutional: Negative for fever, chills, and weight loss, Eyes: Negative for injury, kdr pain, redness, and discharge, ENT: Negative for injury, pain, and discharge, Neck: Negative for injury, pain, and swelling, Cardiovascular: Negative for chest pain, palpitations, and edema, Respiratory: Negative for shortness of breath, cough, wheezing, and pleuritic chest pain, Abdomen/GI: Negative for abdominal pain, nausea, vomiting, diarrhea, and constipation, Back: Negative for injury and pain, : Negative for injury, bleeding, discharge, and swelling, Skin: Negative for injury, rash, and discoloration, Neuro: Negative for headache, weakness, numbness, tingling, and seizure activity. Psych: Negative for depression, anxiety, suicide ideation, homicidal ideation, and hallucinations, Allergy/Immunology: Negative for hives, rash, and allergies, Endocrine: Negative for neck swelling, polydipsia, polyuria, polyphagia, and marked weight changes, Hematologic/Lymphatic: Negative for swollen nodes, abnormal bleeding, and unusual bruising. 11:09 MS/extremity: Positive for injury or acute deformity, decreased range of motion, ecchymosis, pain, tenderness, of the anterior aspect of right shoulder, right bicep and posterior aspect of right shoulder, The patient has ecchymosis to the right knee. Exam: 11:09 Constitutional: This is a well developed, well nourished patient who is awake, alert, kdr and in no acute distress. Head/Face: Normocephalic, atraumatic. Eyes: Pupils equal round and reactive to light, extra-ocular motions intact. Lids and lashes normal. Conjunctiva and sclera are non-icteric and not injected. Cornea within normal limits. Periorbital areas with no swelling, redness, or edema. Neck: Trachea midline, no thyromegaly or masses palpated, and no cervical lymphadenopathy. Supple, full range of motion without nuchal rigidity, or vertebral point tenderness. No Meningismus. Chest/axilla: Normal chest wall appearance and motion. Nontender with no deformity. No lesions are appreciated. Cardiovascular: Regular rate and rhythm with a normal S1 and S2. No gallops, murmurs, or rubs. Normal PMI, no JVD. No pulse deficits. Respiratory: Lungs have equal breath sounds bilaterally, clear to auscultation and percussion. No rales, rhonchi or wheezes noted. No increased work of breathing, no retractions or nasal flaring. Abdomen/GI: Soft, non-tender, with normal bowel sounds. No distension or tympany. No guarding or rebound. No evidence of tenderness throughout. Back: No spinal tenderness. No costovertebral tenderness. Full range of motion. Skin: Warm, dry with normal turgor. Normal color with no rashes, no lesions, and no evidence of cellulitis. Neuro: Awake and alert, GCS 15, oriented to person, place, time, and situation. Cranial nerves II-XII grossly intact. Motor strength 5/5 in all extremities. Sensory grossly intact. Cerebellar exam normal. Normal gait. Psych: Awake, alert, with orientation to person, place and time. Behavior, mood, and affect are within normal limits. 11:09 Musculoskeletal/extremity: Extremities: grossly normal except: noted in the anterior aspect of right shoulder and posterior aspect of right shoulder: noted in the lateral aspect of right knee and right knee: Vital Signs: 10:59 BP 192 / 115; Pulse 74; Resp 20; Temp 97.7(O); Pulse Ox 99% on R/A; Weight 75.75 kg; ss Height 5 ft. 7 in. (170.18 cm); Pain 10/10; 12:17 BP 180 / 88; Pulse 73; Resp 16; Pulse Ox 100% on R/A; Pain 6/10; ss 10:59 Body Mass Index 26.16 (75.75 kg, 170.18 cm) ss [place] Coma Score: 10:59 Eye Response: spontaneous(4). Verbal Response: oriented(5). Motor Response: obeys ss commands(6). Total: 15. Trauma Score (Adult): 10:59 Eye Response: spontaneous(1); Verbal Response: oriented(1); Motor Response: obeys ss commands(2); Systolic BP: > 89 mm Hg(4); Respiratory Rate: 10 to 29 per min(4); Eyad Score: 15; Trauma Score: 12 MDM: 11:09 Data reviewed: vital signs, nurses notes, lab test result(s), radiologic studies. kdr Counseling: I had a detailed discussion with the patient and/or guardian regarding: the historical points, exam findings, and any diagnostic results supporting the discharge/admit diagnosis, lab results, radiology results, the need for outpatient follow up. 13:29 Patient medically screened. kdr 13:38 ED course: The patient states that she has T#4 at home for pain. kdr 07/13 11:07 Order name: CT Head C Spine; Complete Time: 13: kdr 07/13 11:07 Order name: Shoulder Right (2 View) XRAY; Complete Time: 13:26 kdr 07/13 11:07 Order name: Knee Right 3 View XRAY; Complete Time: 13:26 kdr 07/13 11:07 Order name: Humerus Right XRAY; Complete Time: 13: kdr 07/13 13:26 Order name: Sling: Right arm; Complete Time: 13:57 kdr Administered Medications: 11:26 Drug: Zofran 4 mg Route: IVP; Site: left antecubital; ss 12:32 Follow up: Response: No adverse reaction; Nausea is decreased ss 11:28 Drug: morphine 2 mg Route: IVP; Site: left antecubital; ss 12:32 Follow up: Response: No adverse reaction ss 13:50 Drug: morphine 2 mg Route: IVP; Site: left antecubital; ss 13:58 Follow up: Response: No adverse reaction; Pain is decreased ss 13:56 Not Given (Other Intervention Used): morphine 4 mg IVP once ss 13:57 Not Given (Physician Discretion; patient refused norco): [place] 10 mg-325 mg 1 tabs PO ss once Disposition: 07/13/18 13:29 Discharged to Home. Impression: Other slipping, tripping and stumbling and falls, Nondisplaced fracture (avulsion) of lateral epicondyle of right humerus. - Condition is Stable. - Discharge Instructions: Humerus Fracture Treated With Immobilization, [id number]. - Medication Reconciliation Form, Thank You Letter, Antibiotic Education, Prescription Opioid Use form. - Follow up: Private Physician; When: 2 - 3 days; Reason: If symptoms return, Further diagnostic work-up, Recheck today's complaints, Continuance of care, Re-evaluation by your physician. - Problem is new. - Symptoms have improved. Signatures: Dispatcher [employer] EDMS Jose Manuel Croft MD MD kdr Malena Fuentes RN RN ss Corrections: (The following items were deleted from the chart) 13:32 13:29 07/13/2018 13:29 Discharged to Home. Impression: Other slipping, tripping and kdr stumbling and falls; Unspecified nondisplaced fracture of surgical neck of right humerus. Condition is Stable. Forms are Medication Reconciliation Form, Thank You Letter, Antibiotic Education, Prescription Opioid Use. Follow up: Private Physician; When: 2 - 3 days; Reason: If symptoms return, Further diagnostic work-up, Recheck today's complaints, Continuance of care, Re-evaluation by your physician. Problem is new. Symptoms have improved. kdr 13:57 13:37 Splint - Elbow - Posterior ordered. kdr ss 14:00 13:32 07/13/2018 13:29 Discharged to Home. Impression: Other slipping, tripping and ss stumbling and falls; Nondisplaced fracture (avulsion) of lateral epicondyle of right humerus. Condition is Stable. Discharge Instructions: Humerus Fracture Treated With Immobilization, [id number]. Forms are Medication Reconciliation Form, Thank You Letter, Antibiotic Education, Prescription Opioid Use. Follow up: Private Physician; When: 2 - 3 days; Reason: If symptoms return, Further diagnostic work-up, Recheck today's complaints, Continuance of care, Re-evaluation by your physician. Problem is new. Symptoms have improved. kdr
[2018-07-13] MEDS ORDERED: HYDROCODONE/APAP 10/325 TAB ONE (13:41)
[2018-07-13] MEDS ORDERED: MORPHINE 2 MG/ML SYR ONE (13:53)
[2018-07-13 14:30] VITALS: TEMP 97.7
[2018-07-13 14:31] VITALS: BP 180/88; O2SAT 100
== END 2018-07-13 14:00 | disposition home or self-care (01) ==
LOC: ER 10:42
DX: S42.434A Nondisplaced fracture (avulsion) of lateral epicondyle of right humerus, initial encounter for closed fracture (principal); W01.0XXA Fall on same level from slipping, tripping and stumbling without subsequent striking against object, initial encounter; Y93.01 Activity, walking, marching and hiking; Y92.512 Supermarket, store or market as the place of occurrence of the external cause; M25.561 Pain in right knee; F41.9 Anxiety disorder, unspecified; I10 Essential (primary) hypertension; Z88.1 Allergy status to other antibiotic agents
CPT/HCPCS: 70450; 72125; 73060; 73030; 73562; 96375; 96374; 99285; J2270; J2405

== ENCOUNTER 2018-08-26 14:50 | Emergency (ER) | payer OTHER ==
--- OUTSIDE RECORDS SUMMARY | 2018-08-26 14:53 | XMS REPORT ---
:1945 [facility] Address [address] [place] [address] [place] [id number] Care Team Providers Name Role Phone Unavailable Unavailable Unavailable Problems This patient has no known problems. Allergies, Adverse Reactions, Alerts This patient has no known allergies or adverse reactions. Medications This patient has no known medications.
[2018-08-26 15:39] LABS: Absolute Lymphocytes (CBC) 0.9 K/uL (0.7-4.9); Absolute Monocytes 0.3 K/uL (0.1-1.3); Basophils % 0.5 % (0-1.3); Eosinophils % 2.2 % (0-4.4); Hematocrit 34.9 % (36.0-45.0); Lymphocytes % 26.8 % (15.3-44.8); MPV 9.8 fL (7.6-11.3); Monocytes % 10.3 % (3.3-12.3); RBC Red Blood Cell Count 3.85 M/uL (3.86-4.86)
[2018-08-26 15:42] LABS: Protime INR 1.08
[2018-08-26 15:53] LABS: ALT/SGPT 14 U/L (12-78); AST/SGOT 10 U/L (15-37); Albumin 3.4 g/dL (3.4-5.0); Alkaline Phosphatase 97 U/L (45-117); BUN Blood Urea Nitrogen 14 mg/dL (7-18); Bicarbonate 25 mmol/L (21-32); Bilirubin Direct 0.1 mg/dL (0-0.2); Bilirubin Total 0.4 mg/dL (0.2-1.0); Glucose Level 89 mg/dL (74-106); NT PRO-BNP 349 pg/mL (<125); Potassium 3.4 mmol/L (3.5-5.1); Protein, Total 6.8 g/dL (6.4-8.2); Sodium Level 144 mmol/L (136-145); Troponin (Emerg Dept Use Only) < 0.02 ng/mL (0.0-0.045)
[2018-08-26] MEDS ORDERED: FENTANYL CITR 100 MCG/2 ML ONE (16:11)
--- NOTE | 2018-08-26 16:22 | EDPHYS ---
Physician Documentation [facility] Name: Sonya Viveros Age: 73 yrs Sex: Female : 1945 Arrival Date: 08/26/2018 Time: 14:54 Bed 19 Private MD: ED Physician Nimesh Hahn HPI: 08/26 15:51 This 73 yrs old Female presents to ER via Ambulatory with complaints of Arm snw Injury, Abdominal Pain, Chest Pain. 15:51 The patient or guardian complains of pain, that is acute. The complaints affect the snw right bicep and right tricep. Context: The problem was sustained at home, resulted from previous right humeral fx, pt went to catch a suitcase as it was falling from bed and now c/o renewed pain. Onset: The symptoms/episode began/occurred suddenly, this morning. Associated signs and symptoms: The patient has no apparent associated signs or symptoms. Severity of symptoms: At their worst the symptoms were moderate, severe. pt states she felt the same type pain on her initial arm injury. The patient has not recently seen a physician. Historical: - Allergies: 15:07 Levofloxacin; tw2 15:07 NSAIDS (Non-Steroidal Anti-Inflamma; tw2 - PMHx: 15:07 Hepatitis; Anxiety; Hernia; Hypertension; tw2 - PSHx: 15:07 Hernia repair; leg surgery; tw2 - Immunization history:: Adult Immunizations. - Social history:: Smoking status: . - Ebola Screening: : Patient denies travel to an Ebola-affected area in the 21 days before illness onset. ROS: 15:50 Constitutional: Negative for fever, chills, and weight loss, Eyes: Negative for injury, snw pain, redness, and discharge, ENT: Negative for injury, pain, and discharge, Neck: Negative for injury, pain, and swelling, Cardiovascular: Negative for palpitations and edema, + chest pain Respiratory: Negative for shortness of breath, cough, wheezing, and pleuritic chest pain, Abdomen/GI: Negative for abdominal pain, nausea, vomiting, diarrhea, and constipation, Back: Negative for injury and pain, : Negative for injury, bleeding, discharge, and swelling, Skin: Negative for injury, rash, and discoloration, Neuro: Negative for headache, weakness, numbness, tingling, and seizure. 15:50 MS/extremity: Positive for pain, tenderness, of the right bicep. Exam: 15:49 Constitutional: This is a well developed, well nourished patient who is awake, alert, snw and tearful with pain to right humerus Head/Face: Normocephalic, atraumatic. Eyes: Pupils equal round and reactive to light, extra-ocular motions intact. Lids and lashes normal. Conjunctiva and sclera are non-icteric and not injected. Cornea within normal limits. Periorbital areas with no swelling, redness, or edema. ENT: Nares patent. No nasal discharge, no septal abnormalities noted. Tympanic membranes are normal and external auditory canals are clear. Oropharynx with no redness, swelling, or masses, exudates, or evidence of obstruction, uvula midline. Mucous membranes moist. Neck: Trachea midline, no thyromegaly or masses palpated, and no cervical lymphadenopathy. Supple, full range of motion without nuchal rigidity, or vertebral point tenderness. No Meningismus. Chest/axilla: Normal chest wall appearance and motion. Nontender with no deformity. No lesions are appreciated. Cardiovascular: Regular rate and rhythm with a normal S1 and S2. No gallops, murmurs, or rubs. Normal PMI, no JVD. No pulse deficits. Respiratory: Lungs have equal breath sounds bilaterally, clear to auscultation and percussion. No rales, rhonchi or wheezes noted. No increased work of breathing, no retractions or nasal flaring. Abdomen/GI: Soft, non-tender, with normal bowel sounds. No distension or tympany. No guarding or rebound. No evidence of tenderness throughout. Back: No spinal tenderness. No costovertebral tenderness. Full range of motion. Skin: Warm, dry with normal turgor. Normal color with no rashes, no lesions, and no evidence of cellulitis. MS/ Extremity: Pulses equal, no cyanosis. Neurovascular intact. Full, normal range of motion. Neuro: Awake and alert, GCS 15, oriented to person, place, time, and situation. Cranial nerves II-XII grossly intact. Motor strength 5/5 in all extremities. Sensory grossly intact. Cerebellar exam normal. Normal gait. Psych: Awake, alert, with orientation to person, place and time. Behavior, mood, and affect are within normal limits. Vital Signs: 15:06 Pulse 65; Resp 19; Temp 97.9(TE); Pulse Ox 98% on R/A; Weight 86.18 kg (R); Height 5 tw2 ft. 8 in. (172.72 cm); Pain 8/10; 15:15 BP 171 / 87; em 16:48 BP 182 / 93; Pulse 56; Resp 18; Pulse Ox 99% on R/A; Pain 7/10; em 15:06 Body Mass Index 28.89 (86.18 kg, 172.72 cm) tw2 MDM: 15:08 Patient medically screened. snw 16:23 Data reviewed: vital signs, nurses notes. Data interpreted: Pulse oximetry: on room air snw is 98 %. Interpretation: normal. Counseling: I had a detailed discussion with the patient and/or guardian regarding: the historical points, exam findings, and any diagnostic results supporting the discharge/admit diagnosis, the presence of at least one elevated blood pressure reading (>120/80) during this emergency department visit, radiology results, the need for outpatient follow up, to return to the emergency department if symptoms worsen or persist or if there are any questions or concerns that arise at home. Special discussion: I have referred the patient to see his PCP for further evaluation of high blood pressure. Based on the history and exam findings, there is no indication for further emergent testing or inpatient evaluation. I discussed with the patient/guardian the need to see the primary care provider for further evaluation of the symptoms. 08/26 15:07 Order name: Basic Metabolic Panel; Complete Time: 15:53 snw 08/26 15:07 Order name: CBC with Diff; Complete Time: 15:53 snw 08/26 15:07 Order name: LFT's; Complete Time: 15:53 snw 08/26 15:07 Order name: Magnesium; Complete Time: 15:53 snw 08/26 15:07 Order name: NT PRO-BNP; Complete Time: 15:53 snw 08/26 15:07 Order name: PT-INR; Complete Time: 15:53 snw 08/26 15:07 Order name: Troponin (emerg Dept Use Only); Complete Time: 15:53 snw 08/26 15:07 Order name: XRAY Chest (1 view) snw 08/26 15:07 Order name: EKG; Complete Time: 15:10 snw 08/26 15:07 Order name: Cardiac monitoring; Complete Time: 15:09 snw 08/26 15:07 Order name: EKG - Nurse/Tech; Complete Time: 15:09 snw 08/26 15:07 Order name: IV Saline Lock; Complete Time: 15:28 snw 08/26 15:07 Order name: Labs collected and sent; Complete Time: 15:28 snw 08/26 15:07 Order name: O2 Per Protocol; Complete Time: 15: snw 08/26 15:07 Order name: O2 Sat Monitoring; Complete Time: 15:09 snw Administered Medications: 16:19 Drug: fentaNYL (PF) 25 mcg Route: IVP; Site: left antecubital; ss 16:46 Follow up: Response: No adverse reaction; Pain is decreased em 16:43 Drug: Zofran 4 mg Route: PO; em 16:47 Follow up: Response: Medication administered at discharge. em Disposition: 08/27 07:06 Co-signature as Attending Physician, Nimesh Hahn MD. rn Disposition: 08/26/18 16:21 Discharged to Home. Impression: Strain of unspecified muscle, fascia and tendon at shoulder and upper arm level, right arm. - Condition is Stable. - Discharge Instructions: Muscle Cramps and Spasms, Shoulder Pain. - Prescriptions for Ultram 50 mg Oral Tablet - take 1 tablet by ORAL route every 6 hours As needed; 20 tablet. orphenadrine citrate 100 mg Oral Tablet Sustained Release - take 1 tablet by ORAL route 2 times per day As needed; 20 tablet. - Medication Reconciliation Form, Thank You Letter, Antibiotic Education, Prescription Opioid Use form. - Follow up: Private Physician; When: 2 - 3 days; Reason: Recheck today's complaints, Continuance of care, Re-evaluation by your physician. Follow up: Emergency Department; When: As needed; Reason: Worsening of condition. Signatures: Dispatcher [employer] Varsha Jackson FNP-C MANAGER CONSTRUCTION-Csnw Frank Morrison, PHOTOENGRAVING PRINTER PHOTOENGRAVING PRINTER em Nimesh Hahn MD MD rn Smirch, Shelby, RN RN ss Wise, Tara, RN RN tw2 Corrections: (The following items were deleted from the chart) 08/26 16:50 16:21 08/26/2018 16:21 Discharged to Home. Impression: Strain of unspecified muscle, em fascia and tendon at shoulder and upper arm level, right arm. Condition is Stable. Forms are Medication Reconciliation Form, Thank You Letter, Antibiotic Education, Prescription Opioid Use. Follow up: Private Physician; When: 2 - 3 days; Reason: Recheck today's complaints, Continuance of care, Re-evaluation by your physician. Follow up: Emergency Department; When: As needed; Reason: Worsening of condition. snw
--- NOTE | 2018-08-26 16:22 | ER ---
Nurse's Notes [facility] Name: Sonya Viveros Age: 73 yrs Sex: Female : 1945 Arrival Date: 08/26/2018 Time: 14:54 Bed 19 Private MD: Diagnosis: Strain of unspecified muscle, fascia and tendon at shoulder and upper arm level, right arm Presentation: 08/26 14:46 Presenting complaint: Patient states: i started having chest pain last night but its on tw2 the RIGHT side of my chest and my RIGHT arm hurts. Transition of care: patient was not received from another setting of care. Onset of symptoms was August 26, 2018. Risk Assessment: Do you want to hurt yourself or someone else? Patient reports no desire to harm self or others. Initial Sepsis Screen: Does the patient meet any 2 criteria? No. Patient's initial sepsis screen is negative. Does the patient have a suspected source of infection? No. Patient's initial sepsis screen is negative. Care prior to arrival: None. 14:46 Method Of Arrival: Ambulatory tw2 14:46 Acuity: RONALDO 3 tw2 Triage Assessment: 15:06 General: Appears uncomfortable, slender, Behavior is anxious. Pain: Complains of pain tw2 in anterior aspect of right upper chest and right breast. Musculoskeletal: Range of motion: intact in all extremities. Historical: - Allergies: 15:07 Levofloxacin; tw2 15:07 NSAIDS (Non-Steroidal Anti-Inflamma; tw2 - PMHx: 15:07 Hepatitis; Anxiety; Hernia; Hypertension; tw2 - PSHx: 15:07 Hernia repair; leg surgery; tw2 - Immunization history:: Adult Immunizations. - Social history:: Smoking status: . - Ebola Screening: : Patient denies travel to an Ebola-affected area in the 21 days before illness onset. Screenin:25 Abuse screen: Denies threats or abuse. Nutritional screening: No deficits noted. em Tuberculosis screening: No symptoms or risk factors identified. Fall Risk None identified. Assessment: 15:20 General: Appears in no apparent distress. uncomfortable, Behavior is calm, cooperative, em crying. Pain: Complains of pain in right arm Pain currently is 8 out of 10 on a pain scale. Neuro: Level of Consciousness is awake, alert, obeys commands, Oriented to person, place, time, situation. Cardiovascular: Reports chest pain, Denies shortness of breath, Capillary refill < 3 seconds Patient's skin is warm and dry. Rhythm is sinus rhythm. Respiratory: Airway is patent Respiratory effort is even, unlabored, Respiratory pattern is regular, symmetrical, Breath sounds are clear bilaterally. GI: Abdomen is flat. Derm: Skin is intact, is healthy with good turgor, Skin is pink, warm \T\ dry. Musculoskeletal: Capillary refill < 3 seconds, Range of motion: intact in all extremities. 15:30 General: The previous assessment is accurate, call light remains within reach. ss 16:23 Reassessment: Patient appears in no apparent distress at this time. Patient and/or em family updated on plan of care and expected duration. Pain level reassessed. Patient is alert, oriented x 3, equal unlabored respirations, skin warm/dry/pink. ambulated to the restroom, tolerated well. Vital Signs: 15:06 Pulse 65; Resp 19; Temp 97.9(TE); Pulse Ox 98% on R/A; Weight 86.18 kg (R); Height 5 tw2 ft. 8 in. (172.72 cm); Pain 8/10; 15:15 BP 171 / 87; em 16:48 BP 182 / 93; Pulse 56; Resp 18; Pulse Ox 99% on R/A; Pain 7/10; em 15:06 Body Mass Index 28.89 (86.18 kg, 172.72 cm) tw2 ED Course: 14:54 Patient arrived in ED. ss4 15:06 Triage completed. tw2 15:06 Arm band placed on. EKG completed in triage. Results shown to MD. tw2 15:08 Varsha Soni FNP-C is [facility]. snw 15:08 Nimesh Hahn MD is Attending Physician. snw 15:08 Frank Morrison LVN is Primary Nurse. em 15:25 Patient has correct armband on for positive identification. Placed in gown. Bed in low em position. Call light in reach. quality assurance monitor body on. Pulse ox on. NIBP on. 15:25 Initial lab(s) drawn, by me, sent to lab. Inserted saline lock: 20 gauge in left em antecubital area, using aseptic technique. Blood collected. 15:45 XRAY Chest (1 view) In Process Unspecified. EDMS 16:49 No provider procedures requiring assistance completed. IV discontinued, intact, em bleeding controlled, No redness/swelling at site. Pressure dressing applied. Administered Medications: 16:19 Drug: fentaNYL (PF) 25 mcg Route: IVP; Site: left antecubital; ss 16:46 Follow up: Response: No adverse reaction; Pain is decreased em 16:43 Drug: Zofran 4 mg Route: PO; em 16:47 Follow up: Response: Medication administered at discharge. em Outcome: 16:21 Discharge ordered by . snw 16:49 Discharged to home ambulatory. em 16:49 Condition: stable 16:49 Discharge instructions given to patient, Instructed on discharge instructions, follow up and referral plans. medication usage, Demonstrated understanding of instructions, follow-up care, medications, Prescriptions given X 2. 16:50 Patient left the ED. em Signatures: Dispatcher [employer] EDVA Varsha Soni, TRIMMER OPERATOR THREE KNIFE-C TRIMMER OPERATOR THREE KNIFE-Csnw Frank Morrison, EMT I/99 EMT I/99 em Malena Fuentes, RN RN ss Candie Abreu RN RN tw2 [place] [facility]
[2018-08-26] MEDS ORDERED: ONDANSETRON 4 MG (ODT) TAB ONE (16:45)
[2018-08-26 16:58] VITALS: BP 182/93; O2SAT 99
[2018-08-26 17:00] VITALS: TEMP 98.8
--- NOTE | 2018-08-26 17:20 | RAD REPORT ---
EXAM DESCRIPTION: Nasir Single View08/26/2018 3:45 pm CLINICAL HISTORY: Chest pain COMPARISON: 2011 FINDINGS: The lungs appear clear of acute infiltrate. The heart is normal size. Aorta is tortuous/ ectatic. Old right rib fractures IMPRESSION: No acute abnormalities displayed
--- NOTE | 2018-08-27 07:55 | EKG ---
Test Date: 2018-08-26 Test Time: 15:04:11 Clinical Care Manager: ОЛЬГА MEASUREMENT RESULTS: Intervals: Rate: 60 NH: 156 QRSD: 90 QT: 414 QTc: 414 [place]: P: 29 NH: 156 QRS: 3 T: 21 INTERPRETIVE STATEMENTS: Normal sinus rhythm Moderate voltage criteria for LVH, may be normal variant Borderline ECG Compared to ECG 05/04/2018 15:06:19 No significant changes Electronically Signed On 08-27-18 07:52:58 CDT by Roger Ramos
== END 2018-08-26 16:50 | disposition home or self-care (01) ==
LOC: ER 14:50
DX: S46.911A Strain of unspecified muscle, fascia and tendon at shoulder and upper arm level, right arm, initial encounter (principal); X58.XXXA Exposure to other specified factors, initial encounter; Z88.1 Allergy status to other antibiotic agents
CPT/HCPCS: 93005; 85025; 80048; 36415; 83735; 85610; 80076; 84484; 83880; 71045; 96374; 99284; J3010

== ENCOUNTER 2023-07-17 20:46 | Emergency (ER) | payer OTHER ==
--- OUTSIDE RECORDS SUMMARY | 2023-07-17 20:50 | XMS REPORT | Continuity of Care Document ---
Author Name Unknown Address [address] [place] [address] [phone] [facility]. [address] [place] [address] Care Team Providers Care Digester Hand Name Role Phone Unavailable Unavailable Unavailable
[2023-07-17] MEDS ORDERED: MORPHINE 2 MG/ML SYR ONE (21:59)
[2023-07-17] MEDS ORDERED: ONDANSETRON 4 MG/2 ML VIAL ONE (21:59)
[2023-07-17 22:12] LABS: Absolute Eosinophils 0.1 K/uL (0-0.5); Absolute Lymphocytes (CBC) 0.9 K/uL (0.7-4.9); Absolute Monocytes 0.5 K/uL (0.1-1.3); Basophils % 0.5 % (0-1.3); Eosinophils % 1.8 % (0-4.4); Hematocrit 31.1 % (36.0-45.0); Hemoglobin 10.5 g/dL (12.0-15.0); Lymphocytes % 19.4 % (15.3-44.8); MCH 30.7 pg (27.0-35.0); MCHC 33.7 g/dL (32.0-36.0); MPV 8.8 fL (7.6-11.3); Monocytes % 10.9 % (3.3-12.3); Neutrophils % 67.4 % (41.7-73.7); Nucleated Red Blood Cells % 0.1 % (0-0); Platelets 121 thou/uL (152-406); RBC Red Blood Cell Count 3.42 M/uL (3.86-4.86); Red Cell Distribution Width 14.7 % (12.1-15.2)
[2023-07-17 22:23] LABS: Protime INR 1.09
[2023-07-17 22:30] LABS: Albumin 3.1 g/dL (3.4-5.0); Albumin/Globulin Ratio 0.8 (1.1-1.8); Anion Gap 8.7 mEq/L (5.0-15.0); Bilirubin Total 0.3 mg/dL (0.2-1.0); Globulin 3.7 g/dL (2.3-3.5); Potassium 3.7 mEq/L (3.5-5.1); Protein, Total 6.8 g/dL (6.4-8.2); Troponin High Sensitivity 10.3 pg/mL (<58.9)
[2023-07-17] MEDS ORDERED: HYDRALAZINE HCL 20 MG/ML VIAL ONE (23:56)
[2023-07-17] MEDS ORDERED: HYDROCODONE/APAP 5/325 MG TAB ONE (23:56)
[2023-07-18 00:11] LABS: C-Reactive Protein 7.57 mg/L (<3.00)
--- NOTE | 2023-07-18 00:27 | ER ---
Nurse's Notes [facility] Name: Sonya Viveros Age: 78 yrs Sex: Female : 1945 Arrival Date: 07/17/2023 Time: 20:46 Bed 17 Private MD: Diagnosis: Headache-left side;Jaw pain-left side Presentation: 07/16 20:57 Chief complaint: Patient states: Left sided jaw pain since 5am this morning. Pain has nj1 worsen, unable to open her mouth wide enough to eat a sandwich earlier today. Took a tylenol 3. 20:57 Coronavirus screen: Vaccine status: Patient reports receiving the 2nd dose of the covid nj1 vaccine. Ebola Screen: Patient denies travel to an Ebola-affected area in the 21 days before illness onset. Initial Sepsis Screen: Does the patient meet any 2 criteria? No. Patient's initial sepsis screen is negative. Does the patient have a suspected source of infection? No. Patient's initial sepsis screen is negative. Risk Assessment: Do you want to hurt yourself or someone else? Patient reports no desire to harm self or others. Onset of symptoms was July 17, 2023 at 05:00. 20:57 Method Of Arrival: Ambulatory nj1 20:57 Acuity: RONALDO 3 nj1 Historical: - Allergies: 21:03 Levofloxacin; nj1 21:03 NSAIDS (Non-Steroidal Anti-Inflamma; nj1 - PMHx: 21:03 Anxiety; Hepatitis; Hernia; Hypertension; nj1 - Immunization history:: Client reports receiving the 2nd dose of the Covid vaccine. - Infectious Disease History:: Denies. - Social history:: Smoking status: Patient denies any tobacco usage or history of. Screenin:00 [facility] ED Fall Risk Assessment (Adult) History of falling in the last 3 months, pf1 including since admission No falls in past 3 months (0 pts) Confusion or Disorientation No (0 pts) Intoxicated or Sedated No (0 pts) Impaired Gait No (0 pts) Mobility Assist Device Used No (0 pt) Altered Elimination No (0 pt) Score/Fall Risk Level 0 - 2 = Low Risk Oriented to surroundings, Maintained a safe environment, Educated pt \T\ family on fall prevention, incl call for assistance when getting out of bed, Assessed \T\ reinforced patient's understanding of fall precautions, Provided non-skid footwear, Hourly rounding (assess needs \T\ fall precautionary measures) done, Used ambulatory aids as needed (educated on \T\ assisted with), Used gait belt as appropriate. Abuse screen: Denies threats or abuse. Nutritional screening: No deficits noted. Tuberculosis screening: No symptoms or risk factors identified. Assessment: 21:00 General: Appears in no apparent distress. uncomfortable, well groomed, well developed, pf1 Behavior is calm, cooperative, appropriate for age, quiet. 21:00 Pain: Complains of pain in left jaw Pain currently is 10 out of 10 on a pain scale. pf1 Pain began 0500 this AM. Neuro: No deficits noted. Level of Consciousness is awake, alert, obeys commands, Oriented to person, place, time, situation. Cardiovascular: No deficits noted. Capillary refill < 3 seconds Patient's skin is warm and dry. Respiratory: No deficits noted. Airway is patent Respiratory effort is even, unlabored, Respiratory pattern is regular, symmetrical, Breath sounds are clear bilaterally. GI: No deficits noted. No signs and/or symptoms were reported involving the gastrointestinal system. : No deficits noted. No signs and/or symptoms were reported regarding the genitourinary system. EENT: No deficits noted. No signs and/or symptoms were reported regarding the EENT system. Derm: No deficits noted. No signs and/or symptoms reported regarding the dermatologic system. Musculoskeletal: Reports pain in left jaw with swelling. 22:00 Reassessment: Patient appears in no apparent distress at this time. Patient and/or pf1 family updated on plan of care and expected duration. Pain level reassessed. Patient is alert, oriented x 3, equal unlabored respirations, skin warm/dry/pink. 23:00 Reassessment: Patient appears in no apparent distress at this time. Patient and/or pf1 family updated on plan of care and expected duration. Pain level reassessed. Patient is alert, oriented x 3, equal unlabored respirations, skin warm/dry/pink. 07/17 00:00 Reassessment: Patient appears in no apparent distress at this time. Patient and/or pf1 family updated on plan of care and expected duration. Pain level reassessed. Patient is alert, oriented x 3, equal unlabored respirations, skin warm/dry/pink. Patient states symptoms have improved. 00:30 Reassessment: Patient to be discharged after medication are given. pf1 Vital Signs: 07/16 20:57 BP 164 / 94; Pulse 77; Resp 18; Temp 98.6(O); Pulse Ox 97% on R/A; Weight 74.84 kg; nj1 Height 5 ft. 7 in. ; Pain 8/10; 22:00 BP 164 / 80; Pulse 66; Resp 16; Pulse Ox 97% on R/A; pf1 23:00 BP 190 / 80; Pulse 67; Resp 16; Pulse Ox 98% on R/A; pf1 23:52 BP 198 / 67; Pulse 61; Resp 14; Pulse Ox 100% ; Pain 8/10; pf1 07/17 00:30 BP 178 / 72; Pulse 73; Resp 16; Pulse Ox 99% on R/A; pf1 01:00 BP 161 / 76; Pulse 70; Resp 16; Temp 98.3; Pulse Ox 100% on R/A; Pain 4/10; pf1 07/16 20:57 Body Mass Index 25.84 (74.84 kg, 170.18 cm) nj1 07/16 20:57 Pain Scale: Adult nj1 23:52 Pain Scale: Adult pf1 01:00 Pain Scale: Adult pf1 ED Course: 07/16 20:51 Patient arrived in ED. gm2 20:53 Rangel Harley PA is PHCP. cp 20:53 Robbie Alaniz MD is Attending Physician. cp 21:03 Triage completed. nj1 21:04 Arm band placed on. nj1 21:10 Patient has correct armband on for positive identification. Placed in gown. Bed in low pf1 position. Call light in reach. Side rails up X 1. 21:54 No provider procedures requiring assistance completed. Inserted saline lock: 20 gauge pf1 in right antecubital area, using aseptic technique. Blood collected. 21:54 First set of blood cultures drawn by ED staff. pf1 21:54 Initial lab(s) drawn, by ED staff, sent to lab. pf1 22:00 Warm blanket given. pf1 22:07 CBC with Diff Sent. oe 22:07 CMP Sent. oe 22:07 Lactate w/ 2H reflex if indic. Sent. oe 22:08 Protime (+inr) Sent. oe 22:12 Second set of blood cultures drawn by ED staff. pf1 22:17 Pillow given. oe 22:24 Troponin High Sensitivity Sent. pf1 22:58 CT Facial Bones W/O Con In Process Unspecified. EDMS 22:59 CT Soft Tissue Neck W/contr In Process Unspecified. EDMS 07/17 00:26 Jong Gonzalez MD is Referral Physician. cp 01:12 Provided Education on: prescription. pf1 01:12 IV discontinued, intact, bleeding controlled, No redness/swelling at site. Pressure pf1 dressing applied. Administered Medications: 07/16 21:50 Drug: morphine IVP or IV 2 mg IVP once over 4 mins Route: IVP; Infused Over: 4 mins; pf1 Site: right antecubital; 22:50 Follow up: Response: No adverse reaction; Marked relief of symptoms; Pain is decreased pf1 21:50 Drug: Ondansetron IVP 4 mg IVP once; over 2 minutes Route: IVP; Site: right antecubital;pf1 22:50 Follow up: Response: No adverse reaction; Marked relief of symptoms pf1 07/17 00:00 Drug: hydrALAZINE IVP 10 mg IVP once Route: IVP; Site: right antecubital; pf1 00:17 Follow up: Response: No adverse reaction; Marked relief of symptoms; Blood pressure is pf1 lowered 00:02 Drug: HYDROcodone-acetaminophen PO 5 mg-325 mg 1 tabs PO once Route: PO; pf1 00:18 Follow up: Response: No adverse reaction; Marked relief of symptoms; Pain is decreased pf1 00:45 Drug: metoCLOPramide IVP 10 mg IVP once; over 1 to 2 minutes Route: IVP; Site: right pf1 antecubital; 01:12 Follow up: Response: No adverse reaction; Marked relief of symptoms pf1 01:00 Drug: predniSONE PO 60 mg PO once Route: PO; pf1 01:12 Follow up: Response: No adverse reaction; Marked relief of symptoms pf1 Medication: 01:12 VIS not applicable for this client. pf1 Outcome: 00:27 Discharge ordered by . cp 01:12 Discharged to home ambulatory, with family, pf1 01:12 Condition: improved pf1 01:12 Discharge instructions given to patient, family, Instructed on discharge instructions, follow up and referral plans. Demonstrated understanding of instructions, follow-up care, medications, Prescriptions given X 1, 01:12 Patient left the ED. pf1 Signatures: Dispatcher [employer] EDMS Rangel Harley PA PA cp Espinosa, Orlando oe Finley, Pamala, RN RN pf1 Krystle Gautam RN RN nj1 La Mcconnell gm2 Corrections: (The following items were deleted from the chart) 07/16 22:26 21:30 Patient has correct armband on for positive identification. Placed in gown. Bed pf1 in low position. Call light in reach. Side rails up X 1. pf1 07/17 00:05 00:02 C-REACTIVE PROTEIN+C.LAB.BRZ drawn and sent. pf1 EDMS 05:02 01:26 Patient left the ED. pf1 pf1
--- NOTE | 2023-07-18 00:27 | EDPHYS ---
Physician Documentation [facility] Name: Sonya Viveros Age: 78 yrs Sex: Female : 1945 Arrival Date: 07/17/2023 Time: 20:46 Bed 17 Private MD: ED Physician Robbie Alaniz HPI: 07/16 21:40 This 78 yrs old Female presents to ER via Ambulatory with complaints of Facial cp Swelling, Pain. 21:40 The patient complains of pain to the left sabianist and left side of head. The patient cp describes the headache as aching. Patient is a 78-year-old female who presents to the emergency department with complaints of left side jaw pain and swelling that started this morning about 5:00. Patient reports pain shoots into the left temporal area and left side of her head and has been persistent. Patient has dentures in and denies any gum pain. Patient denies cough, sore throat and difficulty swallowing. Patient reports blurry vision but this is nothing new and denies any change in vision of her left eye. Historical: - Allergies: 21:03 Levofloxacin; nj1 21:03 NSAIDS (Non-Steroidal Anti-Inflamma; nj1 - PMHx: 21:03 Anxiety; Hepatitis; Hernia; Hypertension; nj1 - Immunization history:: Client reports receiving the 2nd dose of the Covid vaccine. - Infectious Disease History:: Denies. - Social history:: Smoking status: Patient denies any tobacco usage or history of. ROS: 21:45 Constitutional: Negative for body aches, chills, fever, poor PO intake, cp 21:45 Eyes: Positive for blurry vision, Negative for discharge, pain, vision loss, cp 21:45 ENT: Negative for drainage from ear(s), ear pain, Gum pain sore throat, difficulty swallowing, difficulty handling secretions, 21:45 Cardiovascular: Negative for chest pain, edema, palpitations, 21:45 Respiratory: Negative for cough, shortness of breath, wheezing, 21:45 Abdomen/GI: Negative for abdominal pain, vomiting, diarrhea, constipation, 21:45 Skin: Negative for rash, 21:45 Neuro: Positive for headache, Negative for dizziness, numbness, weakness, 21:45 All other systems are negative, Exam: 21:50 Constitutional: The patient appears in no acute distress, alert, awake, cp non-diaphoretic, non-toxic, well developed, well nourished, uncomfortable, 21:50 Head/face: Noted is tenderness, that is moderate, of the left sabianist and left jaw, cp 21:50 Eyes: Periorbital structures: appear normal, Pupils: equal, round, and reactive to light and accomodation, Extraocular movements: intact throughout, Conjunctiva: normal, no exudate, no injection, Sclera: no appreciated abnormality, Lids and lashes: appear normal, bilaterally, 21:50 ENT: External ear(s): are unremarkable, Ear canal(s): are normal, clear, TM's: dullness, bilaterally, Nose: is normal, Mouth: Lips: moist, Oral mucosa: pink and intact, moist, Posterior pharynx: Airway: no evidence of obstruction, patent, Tonsils: no enlargement, no erythema, no exudate, swelling, is not appreciated, Dental exam: abscess, is not appreciated, gum swelling, not appreciated, 21:50 Neck: ROM/movement: Meningeal signs: are not present, nuchal rigidity, is not appreciated, Lymph nodes: lymphadenopathy is appreciated, anterior cervical nodes, 21:50 Chest/axilla: Inspection: normal, 21:50 Cardiovascular: Rate: normal, Rhythm: regular, 21:50 Respiratory: the patient does not display signs of respiratory distress, Respirations: normal, no use of accessory muscles, no retractions, labored breathing, is not present, Breath sounds: are clear throughout, no decreased breath sounds, no stridor, no wheezing, 21:50 Abdomen/GI: Inspection: abdomen appears normal, Palpation: abdomen is soft and non-tender, in all quadrants, 21:50 Skin: cellulitis, is not appreciated, no rash present. 21:50 Neuro: Orientation: to person, place \T\ time. Mentation: is normal, Motor: moves all fours, strength is normal, Sensation: no obvious gross deficits, 22:18 ECG was reviewed by the Attending Physician. cp Vital Signs: 20:57 BP 164 / 94; Pulse 77; Resp 18; Temp 98.6(O); Pulse Ox 97% on R/A; Weight 74.84 kg; nj1 Height 5 ft. 7 in. ; Pain 8/10; 22:00 BP 164 / 80; Pulse 66; Resp 16; Pulse Ox 97% on R/A; pf1 23:00 BP 190 / 80; Pulse 67; Resp 16; Pulse Ox 98% on R/A; pf1 23:52 BP 198 / 67; Pulse 61; Resp 14; Pulse Ox 100% ; Pain 8/10; pf1 07/17 00:30 BP 178 / 72; Pulse 73; Resp 16; Pulse Ox 99% on R/A; pf1 01:00 BP 161 / 76; Pulse 70; Resp 16; Temp 98.3; Pulse Ox 100% on R/A; Pain 4/10; pf1 07/16 20:57 Body Mass Index 25.84 (74.84 kg, 170.18 cm) [facility] 07/16 20:57 Pain Scale: Adult nj 23:52 Pain Scale: Adult pf1 01:00 Pain Scale: Adult pf1 MDM: 07/16 21:01 Patient medically screened. 07/17 00:26 Data reviewed: vital signs, nurses notes, lab test result(s), EKG, radiologic studies, cp CT scan. 00:26 Differential diagnosis: intracerebral hemorrhage, meningitis, meningoencephalitis, cp migraine, sinusitis, subarachnoid bleed, subdural hematoma, temporal arteritis, tension headache. I considered the following discharge prescriptions or medication management in the emergency department Medications were administered in the Emergency Department. See MAR. Care significantly affected by the following chronic conditions: Hypertension. Counseling: I had a detailed discussion with the patient and/or guardian regarding the historical points, exam findings, and any diagnostic results supporting the discharge/admit diagnosis, lab results, radiology results, the need for outpatient follow up, a family practitioner, a general surgeon, to return to the emergency department if symptoms worsen or persist or if there are any questions or concerns that arise at home. Response to treatment: the patient's symptoms have markedly improved after treatment, and as a result, I will discharge patient. 07/16 21:37 Order name: Blood Culture Adult (2) 07/16 21:37 Order name: CBC with Diff; Complete Time: 22:59 cp 07/16 22:59 Interpretation: Normal except: RBC 3.42; HGB 10.5; HCT 31.1; PLT 121. cp 07/16 21:37 Order name: CMP; Complete Time: 00:14 07/16 23:26 Interpretation: Normal except: CL 108; GLUC 107; GFR 57; AST 9; CA 7.9; ALB 3.1; GLOB cp 3.7; A/G 0.8. 07/16 21:37 Order name: Lactate w/ 2H reflex if indic.; Complete Time: 22:59 cp 07/16 21:37 Order name: Protime (+inr); Complete Time: 22:59 cp 07/16 21:54 Order name: Glucose, Ancillary Testing; Complete Time: 22:59 EDMS 07/16 22:15 Order name: Troponin High Sensitivity; Complete Time: 00:14 EDMS 07/17 00:05 Order name: C-Reactive Protein; Complete Time: 00:14 EDMS 07/17 00:14 Interpretation: Abnormal: C-REACTIVE PROT 7.57. cp 07/16 21:37 Order name: CT Facial Bones W/O Con cp 07/16 21:37 Order name: CT Soft Tissue Neck W/contr cp 07/16 21:37 Order name: Accucheck; Complete Time: 21:51 cp 07/16 21:37 Order name: Cardiac monitoring; Complete Time: 21:51 cp 07/16 21:37 Order name: IV Saline Lock - Large Bore; Complete Time: 21:55 cp 07/16 21:37 Order name: Labs collected and sent; Complete Time: 22:07 cp 07/16 21:37 Order name: O2 Per Protocol; Complete Time: 21:51 cp 07/16 21:37 Order name: O2 Sat Monitoring; Complete Time: 21:51 cp 07/16 21:37 Order name: Vital Signs; Complete Time: 21:51 cp 07/16 22:09 Order name: EKG - Nurse/Tech; Complete Time: 22:24 cp EC/28 22:18 Rate is 58 beats/min. Rhythm is regular. NC interval is normal. QRS interval is cp prolonged. QT interval is normal. T waves are Inverted in lead aVR. Interpreted by me. Reviewed by me. Administered Medications: 21:50 Drug: morphine IVP or IV 2 mg IVP once over 4 mins Route: IVP; Infused Over: 4 mins; pf1 Site: right antecubital; 22:50 Follow up: Response: No adverse reaction; Marked relief of symptoms; Pain is decreased pf1 21:50 Drug: Ondansetron IVP 4 mg IVP once; over 2 minutes Route: IVP; Site: right antecubital;pf1 22:50 Follow up: Response: No adverse reaction; Marked relief of symptoms pf1 07/17 00:00 Drug: hydrALAZINE IVP 10 mg IVP once Route: IVP; Site: right antecubital; pf1 00:17 Follow up: Response: No adverse reaction; Marked relief of symptoms; Blood pressure is pf1 lowered 00:02 Drug: HYDROcodone-acetaminophen PO 5 mg-325 mg 1 tabs PO once Route: PO; pf1 00:18 Follow up: Response: No adverse reaction; Marked relief of symptoms; Pain is decreased pf1 00:45 Drug: metoCLOPramide IVP 10 mg IVP once; over 1 to 2 minutes Route: IVP; Site: right pf1 antecubital; 01:12 Follow up: Response: No adverse reaction; Marked relief of symptoms pf1 01:00 Drug: predniSONE PO 60 mg PO once Route: PO; pf1 01:12 Follow up: Response: No adverse reaction; Marked relief of symptoms pf1 Disposition: :03 Co-signature as Attending Physician, Robbie Alaniz MD I agree with the assessment sp4 and plan of care. I reviewed the patient's care provided by the Advanced Practice Provider and agree with the diagnosis and treatment plan. Disposition Summary: 07/18/23 00:27 Discharge Ordered Notes: Location: Home cp Problem: new cp Symptoms: have improved cp Condition: Stable cp Diagnosis - Headache - left side cp - Jaw pain - left side cp Followup: cp - With: Private Physician - When: 2 - 3 days - Reason: Recheck today's complaints Followup: cp - With: Jong Gonzalez MD - When: 2 - 3 days - Reason: Recheck today's complaints Discharge Instructions: - Discharge Summary Sheet cp - General Headache Without Cause cp - Pain Medicine Instructions, [id number] cp Forms: - Medication Reconciliation Form cp - Antibiotic Education cp - Prescription Opioid Use cp - Patient Portal Instructions cp - Leadership Thank You Letter cp Prescriptions: - Prednisone 20 mg Oral tablet - take 3 tablets ORAL route once daily for 10 days; 30 tablet; Refills: 0, cp Product Selection Permitted Signatures: Dispatcher [employer] EDAR Rangel Harley PA PA cp Finley, Pamala, RN RN pf1 Robbie Alaniz MD MD sp4 Krystle Gautam RN RN nj1 Corrections: (The following items were deleted from the chart) 07/16 21:38 21:38 BLOOD CULTURE*+BA.LAB.BRZ ordered. EDMS EDMS 21:38 21:38 CBC+H.LAB.BRZ ordered. EDMS EDMS : 21:38 COMPREHENSIVE METABOLIC PANEL+C.LAB.BRZ ordered. EDMS EDMS : 21:38 LACTATE+C.LAB.BRZ ordered. EDMS EDMS 21:38 21:38 PROTIME (+INR)+COAG.LAB.BRZ ordered. EDMS EDMS 22:12 22:10 Troponin High Sensitivity+C.LAB.BRZ ordered. EDMS EDMS 07/17 00:05 07/16 23:56 C-REACTIVE PROTEIN+C.LAB.BRZ ordered. EDMS EDMS
[2023-07-18] MEDS ORDERED: METOCLOPRAMIDE 10 MG/2mL INJ ONE (00:42)
[2023-07-18] MEDS ORDERED: predniSONE 20 MG TAB ONE (00:56)
[2023-07-18 01:33] VITALS: TEMP 98.6
[2023-07-18 02:10] VITALS: BP 178/72; O2SAT 99
--- NOTE | 2023-07-18 12:37 | RAD REPORT ---
EXAM DESCRIPTION: CT Neck With Intravenous Contrast CLINICAL HISTORY: The patient is 78 years old and is Female; SWELLING TECHNIQUE: Axial computed tomography images of the neck with intravenous contrast. Sagittal and co vic reformatted images were created and reviewed. This CT exam was performed using one or more of the following dose reduction techniques: automated exposure control, adjustment of the mA and/or k V according to patient size, and/or use of iterative reconstruction technique. COMPARISON: No relevant prior studies available. FINDINGS: OROPHARYNX: Unremarkable. No significant tonsillar enlargement. No peritonsillar abs cess. HYPOPHARYNX: Unremarkable. LARYNX: Unremarkable. Normal epiglottis. TRACHEA: Unremarkable. RETROPHARYNGEAL SPACE: Unremarkable. SUBMANDIBULAR/PAROTID GLANDS: Unremarkable. Glands are normal in size. THYROID: Unremarkable. No enlarged or calcified nodules. BONES/JOINTS: Minimal degenerative change of the spine is present. SOFT TISSUES: The soft tissues are normal. VASCULATURE: Atherosclerosis specifically at the carotid bulbs is noted. LYMPH NODES: Unremarkable. No enlarged lymph nodes. DENTAL: The patient is edentulous. LUNG APICES: The lung apices are clear. IMPRESSION: No acute findings on this contrasted CT of the soft tissues of the neck to explain the p atient's symptoms. Electronically signed by: Grisel Tucker MD 07/17/2023 11:21 PM CDT Due to temporary technical issues with the PACS/Fluency reporting system, reports are being signed by the in house radiologist without review as a courtesy to ensure prompt reporting. The interpreting r adiologist is fully responsible for the content of the report.
--- NOTE | 2023-07-18 12:38 | RAD REPORT ---
EXAM DESCRIPTION: CT Maxillofacial Without Intravenous Contrast CLINICAL HISTORY: The patient is 78 years old and is Female; FACIAL PAIN TECHNIQUE: Axial computed tomography images of the face without intravenous contrast. Sagittal and coronal reformatted images were created and reviewed. This CT exam was performed using one or more of the following dose reduction techniques: automated exposure control, adjustment of the mA and/o r kV according to patient size, and/or use of iterative reconstruction technique. COMPARISON: No relevant prior studies available. FINDINGS: Bones/joints: No facial bone fracture. No aggressive osseous lesion. Soft tissues: Normal soft tissues. Orbits: Intact. Sinuses: Small amount of fluid within the left frontal sinus and left sphenoid sinus. Mild mucosal thickening along the floor of each maxillary sinus. Dental: Edentulous. IMPRESSION: 1. No facial bone fracture. 2. Mild paranasal sinus disease. Electronically signed by: Nereida Alva MD 07/17/2023 11:20 PM CDT Due to temporary technical issues with the PACS/Fluency reporting system, reports are being signed by the in house radiologist without review as a courtesy to ensure prompt reporting. The interpreting r adiologist is fully responsible for the content of the report.
--- NOTE | 2023-07-18 12:56 | EKG ---
Test Date: 2023-07-17 Test Time: 22:12:43 Metal Filer: LILIANA MEASUREMENT RESULTS: Intervals: Rate: 58 VT: 160 QRSD: 128 QT: 466 QTc: 457 [place]: P: 51 VT: 160 QRS: 20 T: 18 INTERPRETIVE STATEMENTS: Sinus bradycardia Right bundle branch block Abnormal ECG Compared to ECG 08/26/2018 15:04:11 Right bundle-branch block now present Sinus rhythm no longer present Left ventricular hypertrophy no longer present Electronically Signed On 07-18-23 12:54:43 CDT by Jigar Medina
== END 2023-07-18 01:26 | disposition home or self-care (01) ==
LOC: ER 20:46
DX: R51.9 Headache, unspecified (principal); R68.84 Jaw pain; Z88.1 Allergy status to other antibiotic agents; Z88.6 Allergy status to analgesic agent
CPT/HCPCS: 93005; 87040 ×2; 85025; 36415; 87205 ×2; 85610; 82947; 83605; 84484; 80053; 86140; 70486; 70491; 76377; 96375; 96374; 99284; Q9967; J7512; J0360; J2765; J2270; J2405; 87077; 87186